=== PATIENT | female | born 1965 | race Caucasian/White ===

== ENCOUNTER → 2017-01-20 | Outpatient (CLI) | payer OTHER ==
[~2017-01-20] MED LIST: ALBUAER19 INH; BIOT1CAP8 PO; CHRO1TAB2 PO; CYM/30 PO; CYM60 PO; DLTCD/240 PO; GARC1TAB PO; GLIP10TA9 PO; HYDR-4717 PO; LISI-787 PO; METF-384 PO; MOME200A INH; NAPR1TAB9 PO; OXYC-57 PO; POTA20TA16 PO; PRT/40 PO
[2017-01-20 09:52] LABS: MEAN CELL VOLUME 89.2 fL (80-100); MEAN CORPUSCULAR HEMOGLOBIN 30.6 pg (25-34); MEAN CORPUSCULAR HGB CONC 34.3 g/dl (32-36); PLATELET COUNT 240 K/uL (130-400); RED BLOOD COUNT 4.71 M/uL (4.2-5.4); WHITE BLOOD COUNT 6.78 K/uL (4.8-10.8)
[2017-01-20 10:16] LABS: ESTIMATED AVERAGE GLUCOSE 186 mg/dl; HA1C FLAG Normal (Normal)
[2017-01-20 10:18] LABS: ALT/SGPT 62 U/L (12-78); AST/SGOT 32 U/L (15-37); BLOOD UREA NITROGEN 10 mg/dl (7-18); BUN/CREATININE RATIO 12.4 (10-20); CALCIUM 8.8 mg/dl (8.5-10.1); CARBON DIOXIDE 28 mmol/L (21-32); CHLORIDE 104 mmol/L (98-107); CREATININE 0.81 mg/dl (0.60-1.20); GLUCOSE 182 mg/dl (70-99); POTASSIUM 3.6 mmol/L (3.5-5.1); SODIUM 140 mmol/L (136-145)
[2017-01-20 10:25] LABS: ALB/GLOB RATIO 0.9 (0.9-2); ALKALINE PHOSPHATASE 99 U/L (45-117); CHOLESTEROL 186 mg/dl (0-200); CHOLESTEROL/HDL RATIO 4.4; HDL CHOLESTEROL 42 mg/dl; LDL CHOLESTEROL CALCULATED 103 mg/dl; TRIGLYCERIDES 206 mg/dl (0-150); VERY LOW DENSITY LIPOPROT CALC 41 mg/dl
== END | disposition home or self-care (01) ==
LOC: C.LAB1850 08:20
PROVIDERS: ATTEND Internal Medicine
DX: L65.9 Nonscarring hair loss, unspecified (principal); I10 Essential (primary) hypertension; E11.9 Type 2 diabetes mellitus without complications

== ENCOUNTER → 2017-01-24 | Outpatient (CLI) | payer OTHER ==
--- NOTE | 2017-01-24 11:56 | DIAGNOSTIC IMAGING REPORT ---
EXTREMITY NONVASCULAR LIMITED ultrasound CLINICAL HISTORY: D17.1 Lipoma of torso. Pt with a tender palpable mass on the upper left flank COMPARISON STUDY: None. FINDINGS: No sonographic abnormality within the right upper back. At the left flank area of interest there is a 2.3 x 2.4 x 1.1 cm subcutaneous hyperechoic nodule. IMPRESSION: 1. No sonographic abnormality within the right upper back. 2. At the left flank and there is a 2.4 x 2.2 x 1.1 cm subcutaneous hypoechoic nodule. This favors a lipoma. However, a focal area of fat necrosis could also have a similar appearance. Consider follow-up ultrasound in one month to ensure resolution. Otherwise, if this is a fat-containing lesion and is increasing in size or is painful, then surgical excision should be considered. Electronically signed by: Jack Brito M.D. 01/24/2017 11:54 AM Dictated Date/Time: 01/24/2017 11:52 AM
== END | disposition home or self-care (01) ==
LOC: C.ULTR 11:23
PROVIDERS: ATTEND Internal Medicine
DX: D17.1 Benign lipomatous neoplasm of skin and subcutaneous tissue of trunk (principal)

== ENCOUNTER → 2017-01-24 | Outpatient (CLI) | payer OTHER | END | disposition home or self-care (01) | LOC: C.PAPS 16:02 | PROVIDERS: ATTEND Obstetrics & Gynecology | DX: R87.612 Low grade squamous intraepithelial lesion on cytologic smear of cervix (LGSIL) (principal) ==

== ENCOUNTER → 2017-03-18 | Outpatient (CLI) | payer OTHER ==
[~2017-03-18] MED LIST changes: +DULA1INJ INJ; +GLIP1TAB85 PO; +INSDGIPEN PO; +LPT10 PO; +PANT40TA2 PO; -PRT/40 PO
--- NOTE | 2017-03-18 13:33 | DIAGNOSTIC IMAGING REPORT ---
ABDOMEN CT WITHOUT CONTRAST CT DOSE: 745.88 mGycm HISTORY: Hernia R/O RECURRENT HERNIA TECHNIQUE: Multiaxial CT images of the abdomen was performed without contrast. COMPARISON STUDY: 03/11/2016 FINDINGS: Lung bases are clear. Prior cholecystectomy. Liver spleen and pancreas are uniform. Kidneys negative for hydronephrosis or calcification. Bowel pattern is nonobstructive. There is been interval repair of the periumbilical hernia. There is a localized amount of subcutaneous scar. There is no evidence for recurrent hernia. Anterior abdominal wall appears to be intact. Lateral wall appears to be intact as well. IMPRESSION: 1. Interval repair of the patient's periumbilical hernia.. 2. Minimal localized post procedural scar formation of the subcutaneous fat . 3. The lung bases are now considered clear Electronically signed by: Louie Sawyer M.D. 03/18/2017 1:31 PM Dictated Date/Time: 03/18/2017 1:29 PM
== END | disposition home or self-care (01) ==
LOC: C.CTS 12:39
PROVIDERS: ATTEND Surgery
DX: K46.9 Unspecified abdominal hernia without obstruction or gangrene (principal)

== ENCOUNTER → 2017-03-28 | Outpatient (CLI) | payer OTHER ==
--- NOTE | 2017-03-28 16:30 | MAMMOGRAPHY REPORT ---
BILATERAL DIGITAL SCREENING MAMMOGRAM TOMOSYNTHESIS WITH CAD: 03/28/2017 TECHNIQUE: Breast tomosynthesis in addition to standard 2D mammography was performed. Current study was also evaluated with a Computer Aided Detection (CAD) system. COMPARISON: Comparison is made to exams dated: 03/18/2016 mammogram, 03/29/2015 mammogram, 03/15/2015 ma mmogram, 03/14/2014 mammogram, 03/11/2013 mammogram, and 12/27/2009 mammogram - [facility]. BREAST COMPOSITION: There are scattered areas of fibroglandular density in both breasts. FINDINGS: No suspicious masses, calcifications, or areas of architectural distortion are noted in e ither breast. There has been no significant interval change compared to prior exams. Bilateral rex gn-appearing calcifications are not significantly changed. Asymmetry within the left medial breast is stable dating back to at least the 2009 exam. IMPRESSION: ACR BI-RADS CATEGORY 2: BENIGN There is no mammographic evidence of malignancy. A 1 year screening mammogram is recommended. The p atient will receive written notification of the results. Approximately 10% of breast cancers are not detected with mammography. A negative mammographic repor t should not delay biopsy if a clinically suggestive mass is present. Nona Hanson M.D. ah/:03/28/2017 15:54:55 Jewel Staker: Emily DOBSON(Mauro)(M), [facility] letter sent: Normal 1/2 BI-RADS Code: ACR BI-RADS Category 2: Benign
== END | disposition home or self-care (01) ==
LOC: C.MAMM 12:54
PROVIDERS: ATTEND Internal Medicine
DX: Z12.31 Encounter for screening mammogram for malignant neoplasm of breast (principal)

== ENCOUNTER → 2017-05-19 | Outpatient (CLI) | payer BC, OTHER ==
[~2017-05-19] MED LIST changes: -DULA1INJ INJ; -GLIP1TAB85 PO; -INSDGIPEN PO; -LPT10 PO; -PANT40TA2 PO; +PRT/40 PO
--- NOTE | 2017-05-19 13:12 | DIAGNOSTIC IMAGING REPORT ---
LEFT EXTREMITY NONVASCULAR LIMITED CLINICAL HISTORY: 51 years-old Female presenting with left flank lipoma. TECHNIQUE: Grayscale and limited color Doppler ultrasound imaging of the left flank was performed. COMPARISON: Correlation made to CT from 03/11/2016. FINDINGS: A poorly delineated minimally hyperechoic region deep to the skin in the left flank has been measured. The apparent mass measures 4.0 x 1.1 x 1.9 cm and is essentially indistinguishable from the adjacent subcutaneous fat. No hyperemia on color Doppler. IMPRESSION: 1. Fat containing region in the left flank, poorly delineated but possibly lipoma. Notably, no such discrete mass was delineated on the prior CT. Electronically signed by: Db Fernandez 05/19/2017 1:11 PM Dictated Date/Time: 05/19/2017 1:07 PM
== END | disposition home or self-care (01) ==
PROVIDERS: ATTEND Internal Medicine
DX: D17.1 Benign lipomatous neoplasm of skin and subcutaneous tissue of trunk (principal)

== ENCOUNTER → 2017-06-24 | Outpatient (CLI) | payer BC, OTHER ==
[2017-06-24 12:51] LABS: BASO % 0.3 %; BASO ABS # 0.02 K/uL (0-0.2); COMPLETE YES; HEMATOCRIT 40.3 % (37-47); IG% 0.6 %; LYMPH % 27.6 %; MEAN CELL VOLUME 90.6 fL (80-100); MEAN CORPUSCULAR HEMOGLOBIN 30.8 pg (25-34); MEAN PLATELET VOLUME 10.2 fL (7.4-10.4); MONO % 5.8 %; NEUT % 62.7 %; PLATELET COUNT 272 K/uL (130-400); RED BLOOD COUNT 4.45 M/uL (4.2-5.4); WHITE BLOOD COUNT 7.25 K/uL (4.8-10.8)
[2017-06-24 13:14] LABS: ESTIMATED AVERAGE GLUCOSE 217 mg/dl; HA1C FLAG Normal (Normal)
[2017-06-24 13:25] LABS: ALT/SGPT 76 U/L (12-78); AST/SGOT 42 U/L (15-37); BLOOD UREA NITROGEN 13 mg/dl (7-18); BUN/CREATININE RATIO 15.8 (10-20); CALCIUM 8.8 mg/dl (8.5-10.1); CARBON DIOXIDE 28 mmol/L (21-32); CHLORIDE 101 mmol/L (98-107); CREATININE 0.81 mg/dl (0.60-1.20); GLUCOSE 246 mg/dl (70-99); POTASSIUM 3.8 mmol/L (3.5-5.1); SODIUM 134 mmol/L (136-145)
[2017-06-24 13:29] LABS: RATIO 13.5 mcg/mg (0-30.0)
[2017-06-24 13:33] LABS: ALB/GLOB RATIO 0.8 (0.9-2); ALKALINE PHOSPHATASE 107 U/L (45-117); FERRITIN 108.9 ng/ml (8.0-388.0); TOTAL IRON BINDING CAPACITY 346 mcg/dl (250-450)
[2017-06-24 13:37] LABS: T3 TOTAL 1.04 ng/ml (0.60-1.81); THYROXINE (T4) 9.4 mcg/dl (4.5-10.9)
--- NOTE | 2017-06-30 08:53 | CODING QUERY MEDICAL NECESSITY ---
SUPPORTING DIAGNOSIS NEEDED Dr. Gray, A supporting diagnosis is required for the test/procedure performed on this patient in order for us to be reimbursed by the patient's insurance. Please provide a supporting diagnosis for the following test/procedure listed below next to the test name along with your signature. *If there is no additional diagnosis for this patient that would support the following test/procedure please document that below next to the test/procedure. Test(s)/Procedure(s) that require a supporting diagnosis: * ([id number]) VITAMIN D ASSAY DIAGNOSIS: DATE OF SERVICE: 06/24/17 Provider Signature: Date: Thank you Fortino Mcelroy [facility] Information Management Once completed, please kindly fax back to [phone] For questions please call [phone]
[2017-06-30 14:15] LABS: TESTOSTERONE,TOTAL 17 ng/dL (2-45)
== END | disposition home or self-care (01) ==
LOC: C.LAB1850 11:21
PROVIDERS: ATTEND Dermatology
DX: E11.9 Type 2 diabetes mellitus without complications (principal); R74.0 Nonspecific elevation of levels of transaminase and lactic acid dehydrogenase [LDH]; B35.3 Tinea pedis

== ENCOUNTER → 2017-07-15 | Outpatient (CLI) | payer BC, OTHER ==
[~2017-07-15] MED LIST changes: -BIOT1CAP8 PO; -CHRO1TAB2 PO; -CYM/30 PO; -MOME200A INH
--- NOTE | 2017-07-15 14:33 | DIAGNOSTIC IMAGING REPORT ---
CHEST 2 VIEWS ROUTINE CLINICAL HISTORY: Preoperative evaluation. COMPARISON STUDY: Chest radiograph April 12, 2016. FINDINGS: Lung volumes are normal. Lungs are clear. No pneumothorax or pleural effusion is present. Pulmonary vascularity is normal. Cardiomediastinal silhouette is normal. There are cholecystectomy clips. IMPRESSION: No acute cardiopulmonary findings. Electronically signed by: Trevor Barrios M.D. 07/15/2017 2:31 PM Dictated Date/Time: 07/15/2017 2:28 PM
== END | disposition home or self-care (01) ==
LOC: C.RAD 13:53
PROVIDERS: ATTEND Surgery
DX: Z01.811 Encounter for preprocedural respiratory examination (principal); D17.1 Benign lipomatous neoplasm of skin and subcutaneous tissue of trunk

== ENCOUNTER 2017-07-17 06:29 | Day surgery (SDC) | payer BC, OTHER ==
[2017-07-11 09:01] VITALS: BMI 41.0
[~2017-07-17] VITALS: Ht 160 cm; Wt 105.9 kg
[~2017-07-17 06:29] MED LIST changes: +LACTATED RINGER'S 1000ML 1,000 ML IV SCH; -OXYC-57 PO
[2017-07-17 07:00] VITALS: BP 152/74; PULSE 61; TEMP 36.9; O2SAT 97; Ht 160 cm; Wt 105.9 kg
--- NOTE | 2017-07-17 07:28 | History & Physical Bridge Note ---
H&P Re-Evaluation Bridge Note: I have examined the patient, reviewed the History & Physical and in the interval since the performance of the History & Physical I have noted the following changes of clinical significance: No changes noted pt marked left chest needs to get ultrasound localization lesion preop
[2017-07-17] MEDS ORDERED: LIDOCAINE HCL 2% 2 ML VIAL (20MG/ML) ONE (07:37)
[2017-07-17] MEDS ORDERED: PROPOFOL IV EMULSION 10 MG/ML 20 ML VIAL IV ONE (07:37)
[2017-07-17] MEDS ORDERED: FENTANYL CITRATE INJ 50 MCG/1 ML 2 ML VIAL ONE (07:38)
[2017-07-17] MEDS ORDERED: MIDAZOLAM HCL 1 MG/ML 2ML VIAL ONE ×2 (07:38→08:18)
[2017-07-17] MEDS ORDERED: NovoLIN-R INSULIN PER UNIT CHARGE ONE (07:57)
--- NOTE | 2017-07-17 07:59 | DIAGNOSTIC IMAGING REPORT ---
ABDOMEN LIMITED (US) HISTORY: Lipoma pj for surgeon to remove. COMPARISON: 05/19/2017 FINDINGS: The echogenic lipoma of the left flank was marked for surgical resection. Current maximum dimensions are 4 x 1 x 1.5 cm. IMPRESSION: Preoperative marking of a left flank lipoma. The above report was generated using voice recognition software. It may contain grammatical, syntax or spelling errors. Electronically signed by: Pj Sawyer M.D. 07/17/2017 7:58 AM Dictated Date/Time: 07/17/2017 7:56 AM
[2017-07-17] MEDS ORDERED: NURSING VERBAL MED ORDER ONE (08:00)
[2017-07-17] MEDS ORDERED: BUPIVACAINE 0.5 % 5 MG/1 ML MPF 30ML VIAL ONE ×2 (08:02→08:39)
[2017-07-17] MEDS ORDERED: HYDROmorphone INJ 2 MG/ML SYR/VIAL IV PRN (08:15)
[2017-07-17] MEDS ORDERED: LABETALOL HCL IV 5 MG/ML 20ML IV PRN (08:15)
[2017-07-17] MEDS ORDERED: PHENYLEPHRINE 100MCG/ML 5ML SYR IV PRN (08:15)
[2017-07-17] MEDS ORDERED: ONDANSETRON INJ 2 MG/ML 2 ML VIAL IV PRN ×2 (08:15→09:15)
[2017-07-17] MEDS ORDERED: FLUMAZENIL 0.1 MG/1 ML 10 ML VIAL IV PRN (08:15)
[2017-07-17] MEDS ORDERED: NALOXONE HCL 0.4 MG/1 ML VIAL/CARP IV PRN (08:15)
[2017-07-17] MEDS ORDERED: FENTANYL CITRATE INJ 50 MCG/1 ML 2 ML VIAL IV PRN (08:15)
[2017-07-17] MEDS ORDERED: EpHEDrine SULFATE INJ 50 MG/ML AMP IV PRN (08:15)
[2017-07-17] MEDS ORDERED: ATROPINE SULFATE 0.1 MG/ML 5ML SYR IV PRN (08:15)
[2017-07-17] MEDS ORDERED: MEPERIDINE HCL 25 MG/ML CARP IV PRN (08:15)
[2017-07-17] MEDS ORDERED: ONDANSETRON INJ 2 MG/ML 2 ML VIAL ONE (08:26)
--- NOTE | 2017-07-17 09:09 | [facility] Operative Report ---
Operative Report Operative Date Jul 17, 2017. Pre-Operative Diagnosis Soft Tissue Mass - Left Flank Post-Operative Diagnosis 4cm lipomatous Tissue - Left Flank Procedure(s) Performed Excision 4cm lipomatous Tissue with prior ultrasound localization - Left Flank Surgeon Dr. Aditya Thomas [employer] Surgeon(s) Zayra Orr PA-C Estimated Blood Loss 5ml Findings multilobular lipomatous tissue keven 4-6cm size Specimens A.) Lipoma Indications soft tissue mass left lower rib cage flank Description of Procedure or summary dictated confirmation number [id number] I attest to the content of the Intraoperative Record and any orders documented therein. Any exceptions are noted below.
[2017-07-17] MEDS ORDERED: OXYC-57 PO (09:13)
[2017-07-17] MEDS ORDERED: OXYCODONE/ACETAMINOPHEN 5-325 TAB PO PRN ×2 (09:15)
--- NOTE | 2017-07-17 09:17 | Discharge Instructions ---
Discharge Instructions Date of Service Jul 17, 2017. Admission Reason for Admission: Lipoma Of Torso Discharge Discharge Diagnosis / Problem: Lipoma of Torso Discharge Goals Goal(s): Decrease discomfort, Improve function Activity Recommendations Activity Limitations: as noted below Lifting Limitations: no more than 10 pounds Exercise/Sports Limitations: until after follow-up appointment May Resume Sexual Activity: after follow-up appointment Shower/Bathe: tomorrow Driving or Machine Use: resume 1 day after discharge . Instructions / Follow-Up Instructions / Follow-Up You have steri-strips over your surgical incision. Please leave them on until they fall off. You may shower over top them starting tomorrow AM. Please follow-up in the office in 1 week. Please call the office at [phone] to make a follow-up appointment. Please call the office with any questions or concerns. Current Hospital Diet Patient's current hospital diet: Discharge Diet Recommended Diet: Regular Diet Procedures Procedures Performed: Excision 4cm lipomatous Tissue with prior ultrasound localization - Left Flank Pending Studies Studies pending at discharge: yes List of pending studies: Pathology report. Laboratory Results Hemoglobin A1c Test 06/24/17 11:28 Range/Units Estimated Average Glucose 217 mg/dl Hemoglobin A1c 9.2 H 4.5-5.6 % Medical Emergencies . Who to Call and When: Medical Emergencies: If at any time you feel your situation is an emergency, please call 911 immediately. . Non-Emergent Contact Non-Emergency issues call your: Primary Care Provider, Surgeon Call Non-Emergent contact if: temperature is above 101.5, your pain is not controlled, wound has increased drainage, wound has increased redness . "Provider Documentation" section prepared by Zayra Orr. . VTE Core Measure Inpt VTE Proph given/why not?: SCD's [place] Drug Monitoring Program Search Results: patient reviewed within database, no issues identified
--- NOTE | 2017-07-17 09:25 | Anesthesiology Progress Note ---
Anesthesia Post Op Note Date & Time Jul 17, 2017 at 09:25 Vital Signs Pain Intensity: 0 Vital Signs Past 12 Hours Date Time Temp Pulse Resp B/P (MAP) Pulse Ox O2 Delivery O2 Flow Rate FiO2 07/17/17 09:22 140/78 07/17/17 09:20 56 21 07/17/17 09:20 57 21 92 07/17/17 09:17 158/83 07/17/17 09:15 63 12 94 07/17/17 09:15 60 12 07/17/17 09:11 146/86 07/17/17 09:10 61 13 07/17/17 09:10 61 13 95 07/17/17 09:10 36.4 59 16 146/86 (98) 94 Room Air 07/17/17 07:00 36.9 61 20 152/74 (100) 97 Room Air Notes Mental Status: alert / awake / arousable, participated in evaluation Pt Amnestic to Procedure: Yes Nausea / Vomiting: adequately controlled Pain: adequately controlled Airway Patency, RR, SpO2: stable & adequate BP & HR: stable & adequate Hydration State: stable & adequate Anesthetic Complications: no major complications apparent
[2017-07-17 09:40] VITALS: BP 138/78; PULSE 53; TEMP 36.9; O2SAT 95
[2017-07-17 10:10] VITALS: BP 132/66; PULSE 56; TEMP 36.9; O2SAT 95
--- NOTE | 2017-07-17 10:13 | OPERATIVE REPORT ---
DATE OF OPERATION: 07/17/2017 PREOPERATIVE DIAGNOSIS: Soft tissue mass, left lower rib cage flank. POSTOPERATIVE DIAGNOSIS: Same consistent with a lipoma multilobular. PROCEDURE: Excision of left lower rib cage, left flank mass with prior ultrasound localization. SURGEON: Dr. Thomas. MANAGER RECRUITING: Zayra Orr PA-C. SUMMARY: The patient was taken to the ultrasound suite, placed in the right lateral position. The left lower rib, upper flank area of interest was identified by ultrasound and I was present for localization. I could see an area about 4 cm by ultrasound. We marked it with a [place] around the area as the patient would have been laying into the operating room field. Clinically, I could not feel a definitive mass, there was some induration in the area. The patient was taken to the operating room and positioned in the same way as we had more localized in the ultrasound suite. Local anesthetic was used of 0.5% Marcaine without epinephrine, some IV sedation was given. The area had been prepped with Betadine solution. After achieving anesthetic level, we made approximately 3 cm incision over the area of interest, deepened through subcutaneous tissue where we found some multilobular tissue, went deep to the superficial body fascia and found multiple areas of lipomatous tissue but nothing 1 significant lipoma, this was multilobular in nature. I even enlarged the incision a little bit laterally that we had prepped, she had about a 4 cm or so incision, possibly 5 and explored the area with local anesthetic and took out a significant amount of subcutaneous fatty tissue subfascial down to the chest wall. We were probably at approximately the 11th rib area. Once the area was checked for hemostasis there was a bleeder in the subQ that we controlled with 3-0 silk suture, more local was used and closed the wound in multiple layers using 3-0 and 2-0 Dexon interrupted and 4-0 Monocryl for the skin edge. Steri-Strips applied. The procedure was tolerated well by the patient. Estimated blood loss approximately 5 mL. The patient was taken to recovery room in good condition. I attest to the content of the Intraoperative Record and any orders documented therein. Any exception s are noted below.
[2017-07-17] MEDS ORDERED: SODIUM CHLORIDE 0.9% 1000ML 1,000 ML IV SCH (10:30)
== END 2017-07-17 10:20 | disposition home or self-care (01) ==
LOC: C.ACU 06:29
PROVIDERS: ATTEND Surgery
DX: D17.1 Benign lipomatous neoplasm of skin and subcutaneous tissue of trunk (principal); I10 Essential (primary) hypertension; I51.7 Cardiomegaly; E78.5 Hyperlipidemia, unspecified; E87.6 Hypokalemia; E88.81 Metabolic syndrome and other insulin resistance; E55.9 Vitamin D deficiency, unspecified; E11.40 Type 2 diabetes mellitus with diabetic neuropathy, unspecified; E11.43 Type 2 diabetes mellitus with diabetic autonomic (poly)neuropathy; E11.51 Type 2 diabetes mellitus with diabetic peripheral angiopathy without gangrene; K31.84 Gastroparesis; K21.9 Gastro-esophageal reflux disease without esophagitis; K76.0 Fatty (change of) liver, not elsewhere classified; G47.30 Sleep apnea, unspecified; G47.26 Circadian rhythm sleep disorder, shift work type; M15.9 Polyosteoarthritis, unspecified; E66.01 Morbid (severe) obesity due to excess calories; Z68.41 Body mass index [BMI] 40.0-44.9, adult; Z79.84 Long term (current) use of oral hypoglycemic drugs; Z79.899 Other long term (current) drug therapy

== ENCOUNTER → 2017-08-04 | Outpatient (CLI) | payer BC, OTHER ==
[~2017-08-04] MED LIST changes: -LACTATED RINGER'S 1000ML 1,000 ML IV SCH
[2017-08-04 11:42] LABS: URINE APPEARANCE CLEAR (CLEAR); URINE BILIRUBIN NEG (NEG); URINE COLOR YELLOW; URINE EPITHELIAL CELL AUTO >30 /lpf (0-5); URINE NITRITE NEG (NEG); URINE SPECIFIC GRAVITY 1.016 (1.000-1.030); UROBILINOGEN NEG (NEG)
[2017-08-04 11:44] LABS: MANUAL MICROSCOPIC REQUIRED? NO; REVIEW REQ? NO
[2017-08-07 04:44] LABS: ANTI-CENTROMERE AB <1.0 NEG AI (<1.0 NEG); ANTI-SS-A <1.0 NEG AI (<1.0 NEG); ANTI-SS-B <1.0 NEG AI (<1.0 NEG); DNA ds CRITHIDIA NEGATIVE (NEGATIVE); Sm Antibody <1.0 NEG AI (<1.0 NEG)
== END | disposition home or self-care (01) ==
LOC: C.LAB1850 09:31
PROVIDERS: ATTEND Internal Medicine Rheumatology
DX: L65.9 Nonscarring hair loss, unspecified (principal)

== ENCOUNTER 2017-12-30 12:28 | Emergency (ER) | payer BC, OTHER ==
[~2017-12-30] VITALS: Ht 160 cm; Wt 109.0 kg
[~2017-12-30 12:28] MED LIST changes: +DULA1INJ INJ; -GLIP10TA9 PO; +GLIP1TAB85 PO; +INSDGIPEN PO; +LPT10 PO; +PANT40TA2 PO; -PRT/40 PO
[2017-12-30 12:31] VITALS: TEMP 36.8; Ht 160 cm; Wt 109.0 kg
[2017-12-30] MEDS ORDERED: SODIUM CHLORIDE 0.9% 1000ML 1,000 ML IV STA (13:10)
[2017-12-30] MEDS ORDERED: ONDANSETRON INJ 2 MG/ML 2 ML VIAL IV STA (13:10)
[2017-12-30] MEDS ORDERED: LOPERAMIDE LIQUID 1MG/7.5ML 120ML BTL PO ONE (13:15)
[2017-12-30] MEDS ORDERED: MoRPHine SULFATE 4 MG/ML 1 ML CARP\\VIAL IV PRN (13:15)
[2017-12-30] MEDS ORDERED: LOPERAMIDE HCL 2 MG CAP PO SCH (13:30)
[2017-12-30 13:47] LABS: BASO % 0.1 %; BASO ABS # 0.01 K/uL (0-0.2); EOS % 6.3 %; EOS ABS # 0.55 K/uL (0-0.5); HEMATOCRIT 44.6 % (37-47); HEMOGLOBIN 15.6 g/dL (12.0-16.0); IG# 0.06 K/uL (0.00-0.02); LYMPH % 23.1 %; LYMPH ABS # 2.01 K/uL (1.2-3.4); MEAN CELL VOLUME 89.6 fL (80-100); MEAN CORPUSCULAR HEMOGLOBIN 31.3 pg (25-34); MEAN PLATELET VOLUME 10.2 fL (7.4-10.4); MONO % 5.9 %; MONO ABS # 0.51 K/uL (0.11-0.59); NEUT % 63.9 %; NEUT ABS # 5.55 K/uL (1.4-6.5); PLATELET COUNT 262 K/uL (130-400); RED CELL DISTRIBUTION WIDTH SD 42.6 fL (36.4-46.3); WHITE BLOOD COUNT 8.69 K/uL (4.8-10.8)
[2017-12-30 14:13] LABS: ALBUMIN 3.6 gm/dl (3.4-5.0); CREATININE 0.82 mg/dl (0.60-1.20); POTASSIUM 3.1 mmol/L (3.5-5.1)
[2017-12-30] MEDS ORDERED: ONDA4TAB10 SL (15:51)
--- NOTE | 2017-12-30 15:51 | EMERGENCY ROOM VISIT NOTE ---
History Report prepared by He: Stevenson Olivas Under the Supervision of: Dr. Richardson Hui D.O. First contact with patient: 13:05 Chief Complaint: DIARRHEA Stated Complaint: DIARRHEA, ABD PAIN FOR WEEK Nursing Triage Summary: pt to the ED with c/o fever chills over weekend and with n/v/d, felt like she was getting better and now has contiued diarrhea History of Present Illness The patient is a 52 year old female who presents to the Emergency Room with complaints of persistent diarrhea beginning nine days ago. She also complains of chills, fever, chest "burning", and vomiting. Her additional symptoms lasted for two days. The patient states that her diarrhea has persisted, and she is having episodes every few minutes. She describes her diarrhea as "black water". She states that she has been taking Pepto Bismol, but nothing has improved her symptoms. The patient denies recent antibiotic use. Source of History: patient Onset: Nine days ago Symptom Intensity: episodes every few minutes Quality: other (diarrhea) Timing: other (persistent) Modifying Factors (Relieving): other (none) Associated Symptoms: + fevers (resolved a week ago), + chills (resolved a week ago), + chest pain (resolved seven days ago), + vomiting (resolved seven days ago) Review of Systems See HPI for pertinent positives & negatives. A total of 10 systems reviewed and were otherwise negative. Past Medical & Surgical Medical Problems: (1) Anxiety State Nos (2) Diabetes (3) Esophageal Reflux (4) Hypertension Nos (5) Mixed Hyperlipidemia Family History Cancer Diabetes mellitus Gallbladder disease Heart disease Hypertension Social History Smoking Status: Never Smoker Marital Status: Housing Status: lives with family Occupation Status: employed Current/Historical Medications Scheduled Atorvastatin (Lipitor), 10 MG PO DAILY Diltiazem Hcl (Diltiazem Cd), 240 MG PO BID Dulaglutide (Trulicity), 1 DOSE INJ WK Duloxetine HCl (Duloxetine HCl), 60 MG PO QAM Garcinia Cambogia-Chromium (Garcinia Cambogia), 2 TAB PO TID Glipizide Xl (Glucotrol Xl), 10 MG PO DAILY Hydralazine Hcl (Apresoline), 25 MG PO BID Insulin Glargine (Lantus Solostar), 12 UNITS PO QAM Lisinopril/Hctz (Zestoretic 20MG/12.5MG), 1 TAB PO BID Metformin Hcl (Glucophage), 1,000 MG PO BID Naproxen (Aleve), 220-440 MG PO PRN Pantoprazole (Pantoprazole Sodium), 40 MG PO HS Potassium Ext Rel (Klor-Con), 20 MEQ PO BID Scheduled PRN Albuterol Inhaler (Ventolin Inhaler), 2 PUFFS INH QID PRN for SOB/Wheezing Allergies Coded Allergies: Prednisone (Verified Adverse Reaction, Intermediate, hyperglycemia, ) Physical Exam Vital Signs Date Time Temp Pulse Resp B/P (MAP) Pulse Ox O2 Delivery O2 Flow Rate FiO2 12/30/17 14:40 65 20 165/92 95 Room Air 12/30/17 12:31 36.8 67 16 147/90 98 Physical Exam CONSTITUTIONAL/VITAL SIGNS: Reviewed / noted above. GENERAL: Non-toxic in appearance. INTEGUMENTARY: Warm, dry, and [place]. HEAD: Normocephalic. EYES: without scleral icterus or trauma. ENT/OROPHARYNX: clear and moist. LYMPHADENOPATHY/NECK: Is supple without lymphadenopathy or meningismus. RESPIRATORY: Lungs clear and equal. CARDIOVASCULAR: Regular rate and rhythm. GI/ABDOMEN: Soft and nontender. No organomegaly or pulsatile mass. No rebound or guarding. Normal bowel sounds. EXTREMITIES: Warm and well perfused. BACK: No CVA tenderness. NEUROLOGICAL: Intact without focal deficits. PSYCHIATRIC: normal affect. MUSCULOSKELETAL: Normally developed with good muscle tone. Medical Decision & Procedures Laboratory Results 12/30/17 13:30 Red Blood Count 4.98, Mean Corpuscular Volume 89.6, Mean Corpuscular Hemoglobin 31.3, Mean Corpuscular Hemoglobin Concent 35.0, Mean Platelet Volume 10.2, Neutrophils (%) (Auto) 63.9, Lymphocytes (%) (Auto) 23.1, Monocytes (%) (Auto) 5.9, Eosinophils (%) (Auto) 6.3, Basophils (%) (Auto) 0.1, Neutrophils # (Auto) 5.55, Lymphocytes # (Auto) 2.01, Monocytes # (Auto) 0.51, Eosinophils # (Auto) 0.55, Basophils # (Auto) 0.01 12/30/17 13:30 Test 12/30/17 13:30 White Blood Count 8.69 K/uL (4.8-10.8) Red Blood Count 4.98 M/uL (4.2-5.4) Hemoglobin 15.6 g/dL (12.0-16.0) Hematocrit 44.6 % (37-47) Mean Corpuscular Volume 89.6 fL (80-100) Mean Corpuscular Hemoglobin 31.3 pg (25-34) Mean Corpuscular Hemoglobin Concent 35.0 g/dl (32-36) Platelet Count 262 K/uL (130-400) Mean Platelet Volume 10.2 fL (7.4-10.4) Neutrophils (%) (Auto) 63.9 % Lymphocytes (%) (Auto) 23.1 % Monocytes (%) (Auto) 5.9 % Eosinophils (%) (Auto) 6.3 % Basophils (%) (Auto) 0.1 % Neutrophils # (Auto) 5.55 K/uL (1.4-6.5) Lymphocytes # (Auto) 2.01 K/uL (1.2-3.4) Monocytes # (Auto) 0.51 K/uL (0.11-0.59) Eosinophils # (Auto) 0.55 K/uL (0-0.5) Basophils # (Auto) 0.01 K/uL (0-0.2) RDW Standard Deviation 42.6 fL (36.4-46.3) RDW Coefficient of Variation 13.0 % (11.5-14.5) Immature Granulocyte % (Auto) 0.7 % Immature Granulocyte # (Auto) 0.06 K/uL (0.00-0.02) Anion Gap 7.0 mmol/L (3-11) Est Creatinine Clear Calc Drug Dose 95.1 ml/min Estimated GFR () 95.4 Estimated GFR (Non- 82.3 BUN/Creatinine Ratio 9.6 (10-20) Calcium Level 9.0 mg/dl (8.5-10.1) Total Bilirubin 0.9 mg/dl (0.2-1) Direct Bilirubin 0.2 mg/dl (0-0.2) Aspartate Amino Transf (AST/SGOT) 18 U/L (15-37) Alanine Aminotransferase (ALT/SGPT) 42 U/L (12-78) Alkaline Phosphatase 103 U/L (45-117) Total Protein 8.0 gm/dl (6.4-8.2) Albumin 3.6 gm/dl (3.4-5.0) Lipase 216 U/L (73-393) Laboratory results as stated above per my review. Medications Administered Medications (Trade) Dose Ordered Sig/Carolyn Route Start Time Stop Time Status Last Admin Dose Admin Sodium Chloride 1,000 ml @ 999 mls/hr Q1H1M STAT IV 12/30/17 13:10 12/30/17 14:10 DC 12/30/17 13:25 999 MLS/HR Ondansetron HCl (Zofran Inj) 4 mg NOW STAT IV 12/30/17 13:10 12/30/17 13:13 DC 12/30/17 13:25 4 MG Loperamide HCl (Imodium Cap) 2 mg 1330 PO 12/30/17 13:30 12/30/17 14:00 DC 12/30/17 13:37 2 MG ED Course 1307: Previous medical records were reviewed. The patient was evaluated in room C6. A complete history and physical examination was performed. 1310: Ordered Zofran Inj 4 mg IV, Sodium Chloride 1000 ml @ 999 mls/hr IV. 1315: Ordered Morphine Sulfate 4 mg IV. 1330: Ordered Imodium Cap 2 mg PO. 1537: On reevaluation, the patient is resting comfortably. I discussed the results and findings with the patient. She verbalized agreement of the treatment plan. The patient was discharged home. Medical Decision Differential diagnosis: Etiologies such as gastroenteritis, food borne illness, infections, appendicitis , diverticulitis, inflammatory bowel disease, obstruction, GI bleed, biliary pathology, as well as others were entertained. This is a 52-year-old female who presents to the ED with a chief complaint of diarrhea. The patient states that her symptoms started about 9 days ago with some chills, slight fever and a little nausea, vomiting diarrhea. It seemed to get better and then over the past 4 days she states that she has been having diarrhea every time she eats or drinks anything. The patient reports no blood or mucus in her stools. She states that she has been taking Pepto-Bismol without improvement. This did make her stools black watery. The patient denies any recent antibiotics or travel. No camping. The patient's had similar symptoms over a week ago and his symptoms lasted for a couple of days and resolved but did not return. The patient's CBC is normal, chemistry panel was unremarkable with exception of a slightly low potassium. Lipase was negative. The patient was treated with Imodium p.o., IV fluids and IV morphine as well as IV Zofran. The patient did not have any diarrhea today during her ED stay. She was felt to be stable for discharge. Prescription for Zofran provided. Medication Reconcilliation Current Medication List: was personally reviewed by me Blood Pressure Screening Patient's blood pressure: Elevated blood pressure Blood pressure disposition: Elevated BP felt to be situational Impression Primary Impression: Diarrhea Scribe Attestation The scribe's documentation has been prepared under my direction and personally reviewed by me in its entirety. I confirm that the note above accurately reflects all work, treatment, procedures, and medical decision making performed by me. Departure Information Dispostion Home / Self-Care Prescriptions Ondasetron Odt (ZOFRAN ODT) 4 Mg Tab 4 MG SL Q6H for Nausea, #15 TAB Prov: Richardson Hui D.O. 12/30/17 Referrals ,Tip Stone M.D. (PCP) Patient Instructions My [facility] Additional Instructions Zofran: Allow one tablet to dissolve under the tongue every 6 hours as needed for nausea or vomiting. Follow-up with your doctor if symptoms persist.
[2017-12-30 16:06] VITALS: BP 183/103; PULSE 63; O2SAT 95
== END 2017-12-30 16:08 | disposition home or self-care (01) ==
LOC: C.EDB 12:30 → C.EDC 16:08
DX: R19.7 Diarrhea, unspecified (principal); F41.9 Anxiety disorder, unspecified; E11.9 Type 2 diabetes mellitus without complications; K21.9 Gastro-esophageal reflux disease without esophagitis; I10 Essential (primary) hypertension; E78.2 Mixed hyperlipidemia; Z83.3 Family history of diabetes mellitus; Z82.49 Family history of ischemic heart disease and other diseases of the circulatory system; Z79.4 Long term (current) use of insulin; Z88.8 Allergy status to other drugs, medicaments and biological substances

== ENCOUNTER 2018-01-02 20:36 | Emergency (ER) | payer OTHER ==
[~2018-01-02] VITALS: Ht 160 cm; Wt 108.2 kg
[~2018-01-02 20:36] MED LIST changes: +ONDA4TAB10 SL
[2018-01-02 20:41] VITALS: TEMP 36.4; Ht 160 cm; Wt 108.2 kg
[2018-01-02] MEDS ORDERED: ONDANSETRON INJ 2 MG/ML 2 ML VIAL IV STA (20:58)
[2018-01-02] MEDS ORDERED: SODIUM CHLORIDE 0.9% 1000ML 1,000 ML IV ONE (21:00)
--- NOTE | 2018-01-02 21:13 | EMERGENCY ROOM VISIT NOTE ---
History Report prepared by He: Austin Mckinley Under the Supervision of: Dr. Jose R Snow M.D. First contact with patient: 20:52 Chief Complaint: DIARRHEA Stated Complaint: DIARRHEA,DRY HEAVES History of Present Illness The patient is a 52 year old female who presents to the Emergency Room with complaints of persistent diarrhea for the past week and a half. The patient states that she had chills and vomiting earlier this week, though now she is only able to dry heave and burp. She additionally feels weak. she states that earlier this week she felt like she was going to pass out. she also reports having some chest pain intermittently throughout the week. The patient is denying any blood in her stool, hematuria, black stools, problems urinating, urinary pain, recent antibiotics use, any dietary issues, and vaginal bleeding or discharge. She states that tonight she ate at a restaurant named [employer], and the diarrhea got worse after that. The patient notes that she was in the ED the other day, and she was given Imodium and Zofran, and before that she was taking Pepto Bismol, though she has not taken any since then. She denies any chance of as she is s/p hysterectomy. Source of History: patient Onset: week and a half Position: other (global) Quality: other (diarrhea) Timing: other (persistent) Associated Symptoms: + chills, + chest pain, + vomiting, + numbness Note: Associated symptoms: Dry heaving, burping, light headed Review of Systems See HPI for pertinent positives and negatives. A total of ten systems were reviewed and were otherwise negative. Past Medical & Surgical Medical Problems: (1) Anxiety State Nos (2) Diabetes (3) Esophageal Reflux (4) Hypertension Nos (5) Mixed Hyperlipidemia Family History Cancer Diabetes mellitus Gallbladder disease Heart disease Hypertension Social History Smoking Status: Never Smoker Marital Status: Housing Status: lives with family Occupation Status: employed Current/Historical Medications Scheduled Atorvastatin (Lipitor), 10 MG PO DAILY Diltiazem Hcl (Diltiazem Cd), 240 MG PO BID Dulaglutide (Trulicity), 1 DOSE INJ WK Duloxetine HCl (Duloxetine HCl), 60 MG PO QAM Garcinia Cambogia-Chromium (Garcinia Cambogia), 2 TAB PO TID Glipizide Xl (Glucotrol Xl), 10 MG PO DAILY Hydralazine Hcl (Apresoline), 25 MG PO BID Insulin Glargine (Lantus Solostar), 12 UNITS PO QAM Lisinopril/Hctz (Zestoretic 20MG/12.5MG), 1 TAB PO BID Metformin Hcl (Glucophage), 1,000 MG PO BID Naproxen (Aleve), 220-440 MG PO PRN Ondasetron Odt (Zofran Odt), 4 MG SL Q6H Pantoprazole (Pantoprazole Sodium), 40 MG PO HS Potassium Ext Rel (Klor-Con), 20 MEQ PO BID Scheduled PRN Albuterol Hfa (Ventolin Hfa), 2 PUFFS INH Q6H PRN for SOB/Wheezing Allergies Coded Allergies: Prednisone (Verified Adverse Reaction, Intermediate, hyperglycemia, ) Physical Exam Vital Signs Date Time Temp Pulse Resp B/P (MAP) Pulse Ox O2 Delivery O2 Flow Rate FiO2 01/03/18 00:06 59 16 125/82 96 01/02/18 22:57 64 16 129/100 96 Room Air 01/02/18 21:51 64 16 122/70 92 Room Air 01/02/18 21:25 Room Air 01/02/18 20:41 36.4 88 20 109/77 93 Room Air Physical Exam Physical Exam GENERAL: She is oriented to person, place, and time. She appears well- developed and well-nourished. She does not appear distressed. ____ HENT: Exam performed. Head: Normocephalic and atraumatic. Right Ear: External ear normal. No mastoid tenderness. Left Ear: External ear normal. No mastoid tenderness. Mouth/Throat: The oropharynx is clear and moist. No trismus in the jaw. No dental abscesses or uvula swelling. No oropharyngeal exudate or tonsillar abscesses. ____ EYES: Conjunctivae and EOM are normal. Pupils are equal, round, and reactive to light. Right eye exhibits no discharge. Left eye exhibits no discharge. No scleral icterus. ____ NECK: Normal range of motion. Neck supple. No JVD present. No spinous process tenderness present. No carotid bruit present. No rigidity. No tracheal deviation and normal range of motion present. No Brudzinski's sign and no Kernig 's sign noted. ____ CV: Normal rate, regular rhythm, normal heart sounds and intact distal pulses. There is no peripheral edema. Palpable radial pulses bue. ____ PULM/CHEST: Effort normal and breath sounds normal. No respiratory distress. No stridor. She has no wheezes. She has no rales. Chest Wall: She exhibits no tenderness. ____ ABD: The abdomen is obese and soft. Bowel sounds are normal. She has no distension. No mass is present. There is no tenderness. There is no rebound, no guarding, no Sánchez's sign and no tenderness at McBurney's point. Rovsig negative MUSC/SKEL: Normal range of motion. There is no peripheral edema, tenderness or deformity. LYMPH: No cervical adenopathy. ____ NEURO: She is alert and oriented to person, place, and time. She has normal strength. No cranial nerve deficit or sensory deficit. Coordination and gait normal. GCS eye subscore is 4. GCS verbal subscore is 5. GCS motor subscore is 6. Cerebellar tests wnl. ____ SKIN: Skin is warm and dry. She is not diaphoretic. ____ PSYCH: She has a normal mood and affect. Her behavior is normal. Judgment and thought content normal. ____ Medical Decision & Procedures ER Provider Diagnostic Interpretation: Radiology results as stated below per my review and radiologist interpretation: CHEST 2 VIEWS ROUTINE CLINICAL HISTORY: Atypical chest pain, nausea, diarrhea COMPARISON STUDY: 07/15/2017 FINDINGS: The cardiac and mediastinal contours are normal. There is no evidence of focal pulmonary consolidation. There is no evidence of failure. No pleural effusions are visualized.[ IMPRESSION: No active disease in the chest. Electronically signed by: Daniel Oakley M.D. 01/02/2018 9:50 PM Dictated Date/Time: 01/02/2018 9:[address] ABD/PELVIS IV CONTRAST ONLY CLINICAL HISTORY: LLQ pain r/o diverticulitis COMPARISON STUDY: 03/18/2017 TECHNIQUE: Following the IV administration of 91 mL of Optiray-320, CT scan of the abdomen and pelvis was performed from the lung bases to the proximal femurs. Images are reviewed in the axial, sagittal, and coronal planes. IV contrast was administered without complication. A dose lowering technique was utilized adhering to the principles of ALARA. CT DOSE: 1848.23 mGy.cm FINDINGS: Lower chest: The heart is normal in size and configuration, without pericardial effusion. The lung bases and pleural spaces are clear. Liver: There is mild hepatic steatosis. No focal masses are visualized. Gallbladder: Surgically absent Spleen: Normal in size and attenuation. Pancreas: Unremarkable. Adrenal glands: Unremarkable. Kidneys: There is symmetric renal cortical enhancement. The kidneys are normal in size without hydronephrosis. Bowel: There are no transition zones indicate bowel obstruction. There is no evidence of acute diverticulitis. There is scattered diverticula present. There are no findings to indicate acute appendicitis. There is moderate fluid within the right colon Peritoneum: There is no intraperitoneal free air or abdominal ascites. There are postsurgical changes of a ventral hernia repair with mesh area Vasculature: The abdominal aorta is normal in course and caliber. Adenopathy: None. Pelvic viscera: The uterus is surgically absent. Skeletal structures: No destructive osseous lesions are seen. IMPRESSION: 1. No evidence of bowel obstruction. No evidence of free air 2. Diverticulosis. No evidence of acute diverticulitis 3. No acute inflammatory changes Electronically signed by: Daniel Oakley M.D. 01/02/2018 10:35 PM Dictated Date/Time: 01/02/2018 10:30 PM Laboratory Results 01/02/18 21:10 Red Blood Count 5.46, Mean Corpuscular Volume 90.7, Mean Corpuscular Hemoglobin 30.6, Mean Corpuscular Hemoglobin Concent 33.7, Mean Platelet Volume 10.6, Neutrophils (%) (Auto) 73.9, Lymphocytes (%) (Auto) 13.7, Monocytes (%) (Auto) 4.7, Eosinophils (%) (Auto) 7.0, Basophils (%) (Auto) 0.1, Neutrophils # (Auto) 11.75, Lymphocytes # (Auto) 2.17, Monocytes # (Auto) 0.74, Eosinophils # (Auto) 1.11, Basophils # (Auto) 0.02 01/02/18 21:10 Test 01/02/18 21:10 01/02/18 22:10 White Blood Count 15.88 K/uL (4.8-10.8) Red Blood Count 5.46 M/uL (4.2-5.4) Hemoglobin 16.7 g/dL (12.0-16.0) Hematocrit 49.5 % (37-47) Mean Corpuscular Volume 90.7 fL (80-100) Mean Corpuscular Hemoglobin 30.6 pg (25-34) Mean Corpuscular Hemoglobin Concent 33.7 g/dl (32-36) Platelet Count 274 K/uL (130-400) Mean Platelet Volume 10.6 fL (7.4-10.4) Neutrophils (%) (Auto) 73.9 % Lymphocytes (%) (Auto) 13.7 % Monocytes (%) (Auto) 4.7 % Eosinophils (%) (Auto) 7.0 % Basophils (%) (Auto) 0.1 % Neutrophils # (Auto) 11.75 K/uL (1.4-6.5) Lymphocytes # (Auto) 2.17 K/uL (1.2-3.4) Monocytes # (Auto) 0.74 K/uL (0.11-0.59) Eosinophils # (Auto) 1.11 K/uL (0-0.5) Basophils # (Auto) 0.02 K/uL (0-0.2) RDW Standard Deviation 42.7 fL (36.4-46.3) RDW Coefficient of Variation 13.0 % (11.5-14.5) Immature Granulocyte % (Auto) 0.6 % Immature Granulocyte # (Auto) 0.09 K/uL (0.00-0.02) Anion Gap 7.0 mmol/L (3-11) Est Creatinine Clear Calc Drug Dose 57.5 ml/min Estimated GFR () 52.2 Estimated GFR (Non- 45.0 BUN/Creatinine Ratio 13.0 (10-20) Calcium Level 8.9 mg/dl (8.5-10.1) Total Bilirubin 1.0 mg/dl (0.2-1) Direct Bilirubin 0.2 mg/dl (0-0.2) Aspartate Amino Transf (AST/SGOT) 21 U/L (15-37) Alanine Aminotransferase (ALT/SGPT) 46 U/L (12-78) Alkaline Phosphatase 112 U/L (45-117) Troponin I < 0.015 ng/ml (0-0.045) Total Protein 7.7 gm/dl (6.4-8.2) Albumin 3.7 gm/dl (3.4-5.0) Lipase 448 U/L (73-393) Urine Color DK YELLOW Urine Appearance CLOUDY (CLEAR) Urine pH 5.0 (4.5-7.5) Urine Specific [place] 1.026 (1.000-1.030) Urine Protein 1+ (NEG) Urine Glucose (UA) NEG (NEG) Urine Ketones TRACE (NEG) Urine Occult Blood NEG (NEG) Urine Nitrite NEG (NEG) Urine Bilirubin NEG (NEG) Urine Urobilinogen NEG (NEG) Urine Leukocyte Esterase TRACE (NEG) Urine WBC (Auto) 1-5 /hpf (0-5) Urine RBC (Auto) 0-4 /hpf (0-4) Urine Hyaline Casts (Auto) >30 /lpf (0-5) Urine Epithelial Cells (Auto) >30 /lpf (0-5) Urine Bacteria (Auto) 1+ (NEG) Urine Crystals CALCIUM OXALATE (NONE Urine Pathogenic Casts 0-3 WBC CASTS /lpf (0) Date/Time Source Procedure Growth Status 01/02/18 22:10 Stool C.difficile Toxin B Gene (PCR) - Final No C. difficile toxin B gene detected Complete Laboratory results reviewed by me Medications Administered Medications (Trade) Dose Ordered Sig/Carolyn Route Start Time Stop Time Status Last Admin Dose Admin Sodium Chloride 1,000 ml @ 999 mls/hr Q1H1M ONCE IV 01/02/18 21:00 01/02/18 22:00 DC 01/02/18 21:21 999 MLS/HR Ondansetron HCl (Zofran Inj) 4 mg ONE STAT IV 01/02/18 20:58 01/02/18 21:03 DC 01/02/18 21:21 4 MG Potassium Chloride (Klor-Con M10) 40 meq NOW STAT PO 01/02/18 23:54 01/02/18 23:56 DC 01/03/18 00:03 40 MEQ ECG Per My Interpretation Indication: other (diarrhea) Rate (beats per minute): 74 Rhythm: sinus rhythm Findings: other (NH, QRS, QTc intervals wnl. No ST elevatoin or depressoin) ED Course 2051: The patient was evaluated in room C5. A complete history and physical exam was performed. Review of EMR reveals that the patient was in the ED 3 days ago, and her labs were normal other than a potassium of 3.1. 2057: Zofran 4mg IV, 2100: Sodium Chloride 1000 ml @ 999 mls/hr IV 2144: Repeat abdominal exam. Pain on palpation of the LLQ as well as the increased white count, a CT scan is going to be ordered wo rule out diverticulitis. 4: VSS. CT was negative for diverticulitis, but it does show diverticulosis. Labs show an increased white count of 15.8 and potassium of 3.1. Potassium was replaced in the ED with Potassium Chloride 40meq PO. Troponin negative. patient tolerating PO. C diff was negative. She will be discharged with a follow up to GI and her PCP. DISCHARGE - Plan of care discussed with patient and questions answered. The patient was given both verbal and printed discharge instructions. The patient verbalized understanding and ability to comply. The patient is to seek outpatient follow up as noted in the discharge instructions. The patient verbalized understanding and ability to comply. The patient is discharged in stable condition. The patient was instructed to return for worsening symptoms. Medical Decision VSS. CT was negative for diverticulitis, but it does show diverticulosis. Labs show an increased white count of 15.8 and potassium of 3.1. Potassium was replaced in the ED with Potassium Chloride 40meq PO. Troponin negative. patient tolerating PO. C diff was negative. She will be discharged with a follow up to GI and her PCP. DISCHARGE - Plan of care discussed with patient and questions answered. The patient was given both verbal and printed discharge instructions. The patient verbalized understanding and ability to comply. The patient is to seek outpatient follow up as noted in the discharge instructions. The patient verbalized understanding and ability to comply. The patient is discharged in stable condition. The patient was instructed to return for worsening symptoms. Medication Reconcilliation Current Medication List: was personally reviewed by me Blood Pressure Screening Patient's blood pressure: Normal blood pressure Impression Primary Impression: Diarrhea Additional Impression: Hypokalemia Scribe Attestation The scribe's documentation has been prepared under my direction and personally reviewed by me in its entirety. I confirm that the note above accurately reflects all work, treatment, procedures, and medical decision making performed by me. The chart was completed utilizing [employer] voice recognition software. Grammatical errors, random word insertions, pronoun errors, and incomplete sentences are an occasional consequence of this system due to software limitations, ambient noise, and hardware issues. Any formal questions or concerns about the content, text, or information contained within the body of this dictation should be directly addressed to the physician for clarification. Departure Information Dispostion Home / Self-Care Referrals No Doctor, Assigned (PCP) Forms HOME CARE DOCUMENTATION FORM, IMPORTANT VISIT INFORMATION, WORK / SCHOOL INSTRUCTIONS Patient Instructions Diarrhea, Hypokalemia Stevie, My [facility] Problem Qualifiers Primary Impression: Diarrhea Diarrhea type: unspecified type Qualified Codes: R19.7 - Diarrhea, unspecified
[2018-01-02 21:32] LABS: BASO % 0.1 %; BASO ABS # 0.02 K/uL (0-0.2); EOS ABS # 1.11 K/uL (0-0.5); HEMATOCRIT 49.5 % (37-47); HEMOGLOBIN 16.7 g/dL (12.0-16.0); IG# 0.09 K/uL (0.00-0.02); LYMPH % 13.7 %; LYMPH ABS # 2.17 K/uL (1.2-3.4); MEAN CELL VOLUME 90.7 fL (80-100); MEAN CORPUSCULAR HEMOGLOBIN 30.6 pg (25-34); MEAN CORPUSCULAR HGB CONC 33.7 g/dl (32-36); MEAN PLATELET VOLUME 10.6 fL (7.4-10.4); MONO % 4.7 %; MONO ABS # 0.74 K/uL (0.11-0.59); NEUT % 73.9 %; NEUT ABS # 11.75 K/uL (1.4-6.5); PLATELET COUNT 274 K/uL (130-400); RED CELL DISTRIBUTION WIDTH SD 42.7 fL (36.4-46.3); WHITE BLOOD COUNT 15.88 K/uL (4.8-10.8)
--- NOTE | 2018-01-02 21:51 | DIAGNOSTIC IMAGING REPORT ---
CHEST 2 VIEWS ROUTINE CLINICAL HISTORY: Atypical chest pain, nausea, diarrhea COMPARISON STUDY: 07/15/2017 FINDINGS: The cardiac and mediastinal contours are normal. There is no evidence of focal pulmonary consolidation. There is no evidence of failure. No pleural effusions are visualized.[ IMPRESSION: No active disease in the chest. Electronically signed by: Daniel Oakley M.D. 01/02/2018 9:50 PM Dictated Date/Time: 01/02/2018 9:50 PM
[2018-01-02 21:52] LABS: ALBUMIN 3.7 gm/dl (3.4-5.0); ALT/SGPT 46 U/L (12-78); AST/SGOT 21 U/L (15-37); BLOOD UREA NITROGEN 18 mg/dl (7-18); CALCIUM 8.9 mg/dl (8.5-10.1); CARBON DIOXIDE 27 mmol/L (21-32); CREATININE 1.35 mg/dl (0.60-1.20); GLUCOSE 158 mg/dl (70-99); LIPASE 448 U/L (73-393); POTASSIUM 3.1 mmol/L (3.5-5.1); SODIUM 136 mmol/L (136-145)
[2018-01-02 21:57] LABS: ALKALINE PHOSPHATASE 112 U/L (45-117); TOTAL PROTEIN 7.7 gm/dl (6.4-8.2)
[2018-01-02] MEDS ORDERED: OPTIRAY 320 IV PRN (22:00)
--- NOTE | 2018-01-02 22:36 | DIAGNOSTIC IMAGING REPORT ---
CT ABD/PELVIS IV CONTRAST ONLY CLINICAL HISTORY: LLQ pain r/o diverticulitis COMPARISON STUDY: 03/18/2017 TECHNIQUE: Following the IV administration of 91 mL of Optiray-320, CT scan of the abdomen and pelvis was performed from the lung bases to the proximal femurs. Images are reviewed in the axial, sagittal, and coronal planes. IV contrast was administered without complication. A dose lowering technique was utilized adhering to the principles of ALARA. CT DOSE: 1848.23 mGy.cm FINDINGS: Lower chest: The heart is normal in size and configuration, without pericardial effusion. The lung bases and pleural spaces are clear. Liver: There is mild hepatic steatosis. No focal masses are visualized. Gallbladder: Surgically absent Spleen: Normal in size and attenuation. Pancreas: Unremarkable. Adrenal glands: Unremarkable. Kidneys: There is symmetric renal cortical enhancement. The kidneys are normal in size without hydronephrosis. Bowel: There are no transition zones indicate bowel obstruction. There is no evidence of acute diverticulitis. There is scattered diverticula present. There are no findings to indicate acute appendicitis. There is moderate fluid within the right colon Peritoneum: There is no intraperitoneal free air or abdominal ascites. There are postsurgical changes of a ventral hernia repair with mesh area Vasculature: The abdominal aorta is normal in course and caliber. Adenopathy: None. Pelvic viscera: The uterus is surgically absent. Skeletal structures: No destructive osseous lesions are seen. IMPRESSION: 1. No evidence of bowel obstruction. No evidence of free air 2. Diverticulosis. No evidence of acute diverticulitis 3. No acute inflammatory changes Electronically signed by: Daniel Oakley M.D. 01/02/2018 10:35 PM Dictated Date/Time: 01/02/2018 10:30 PM
[2018-01-02] MEDS ORDERED: VNTHFA/IN INH (22:51)
[2018-01-02] MEDS ORDERED: POTASSIUM CHLORIDE 10 MEQ TABCR PO STA (23:54)
[2018-01-03 00:06] VITALS: BP 125/82; PULSE 59; O2SAT 96
== END 2018-01-03 00:07 | disposition home or self-care (01) ==
LOC: C.EDB 20:37 → C.EDC 01-03 00:07
DX: R19.7 Diarrhea, unspecified (principal); E87.6 Hypokalemia; F41.9 Anxiety disorder, unspecified; E11.9 Type 2 diabetes mellitus without complications; K21.9 Gastro-esophageal reflux disease without esophagitis; I10 Essential (primary) hypertension; E78.5 Hyperlipidemia, unspecified; Z80.9 Family history of malignant neoplasm, unspecified; Z83.3 Family history of diabetes mellitus; Z83.79 Family history of other diseases of the digestive system; Z82.49 Family history of ischemic heart disease and other diseases of the circulatory system; Z79.4 Long term (current) use of insulin; Z79.899 Other long term (current) drug therapy; Z88.8 Allergy status to other drugs, medicaments and biological substances

== ENCOUNTER → 2018-06-12 | Outpatient (CLI) | payer OTHER ==
[~2018-06-12] MED LIST changes: -ALBUAER19 INH; +POTA-639 PO; -POTA20TA16 PO; +VNTHFA/IN INH
== END | disposition home or self-care (01) ==
LOC: C.LAB1850 11:56
PROVIDERS: ATTEND Internal Medicine
DX: E87.6 Hypokalemia (principal)

== ENCOUNTER 2020-08-03 06:50 | Observation (INO) ==
--- NOTE | 2020-06-30 14:41 | PAT Medication Instructions ---
Medication Instructions Date of Service June 30, 2020 Home Medications Medication Instructions Recorded miscellaneous medical supply #1 ea 10/26/19 cholecalciferol (vitamin D3) 1,250 1,250 mcg PO WEEKLY 90 Days #24 cap 01/11/20 mcg (50,000 unit) capsule diltiazem HCl 240 mg 240 mg PO BID #180 cap 01/18/20 capsule,extended release 24 hr lisinopril 20 1 tab PO BID #180 tab 01/24/20 mg-hydrochlorothiazide 12.5 mg tablet bupropion HCl 300 mg 24 hr tablet, 300 mg PO QAM #30 tab 05/05/20 extended release metformin 1,000 mg tablet 1,000 mg PO BID #60 tab 05/22/20 insulin aspart U-100 100 unit/mL 6 - 10 units SQ TID #15 ml 05/29/20 (3 mL) subcutaneous pen meloxicam 15 mg tablet 15 mg PO DAILY PRN #30 tab 06/21/20 clotrimazole-betamethasone 1 %-0.05 % topical cream 1 appln TOPICAL BID PRN econazole 1 % topical cream 1 appln TOPICAL DAILY PRN ketoconazole 2 % shampoo 1 appln TOPICAL DAILY PRN mometasone 0.1 % topical ointment 1 appln TOPICAL DAILY PRN atorvastatin 20 mg tablet 20 mg PO QAM carvedilol 12.5 mg tablet 12.5 mg PO BID insulin glargine 100 unit/mL (3 mL) subcutaneous pen 40 units SQ DAILY albuterol sulfate 90 mcg/actuation aerosol inhaler 2 puffs INHALATION DAILY PRN hydralazine 25 mg tablet 25 mg PO BID cholecalciferol (vitamin D3) 1,250 mcg (50,000 unit) capsule 1,250 mcg PO WEEKLY diltiazem HCl 240 mg capsule,extended release 24 hr 240 mg PO BID lisinopril 20 mg-hydrochlorothiazide 12.5 mg tablet 1 tab PO BID bupropion HCl 300 mg 24 hr tablet, extended release 300 mg PO QAM metformin 1,000 mg tablet 1,000 mg PO BID insulin aspart U-100 100 unit/mL (3 mL) subcutaneous pen 6 - 10 units SQ TID meloxicam 15 mg tablet 15 mg PO DAILY PRN levothyroxine 50 mcg PO QAM pantoprazole 40 mg PO QAM potassium chloride 20 meq PO QAM ASK your surgeon for instructions meloxicam 15 mg tablet 15 mg PO DAILY PRN STOP taking 24 hours before surgery clotrimazole-betamethasone 1 %-0.05 % topical cream 1 appln TOPICAL BID PRN econazole 1 % topical cream 1 appln TOPICAL DAILY PRN ketoconazole 2 % shampoo 1 appln TOPICAL DAILY PRN mometasone 0.1 % topical ointment 1 appln TOPICAL DAILY PRN DO NOT take the morning of surgery cholecalciferol (vitamin D3) 1,250 mcg (50,000 unit) capsule 1,250 mcg PO WEEKLY lisinopril 20 mg-hydrochlorothiazide 12.5 mg tablet 1 tab PO BID metformin 1,000 mg tablet 1,000 mg PO BID insulin aspart U-100 100 unit/mL (3 mL) subcutaneous pen 6 - 10 units SQ TID potassium chloride 20 meq PO QAM Take morning of surgery With a small sip of water, OTHERWISE NOTHING TO EAT OR DRINK AFTER MIDNIGHT: atorvastatin 20 mg tablet 20 mg PO QAM carvedilol 12.5 mg tablet 12.5 mg PO BID albuterol sulfate 90 mcg/actuation aerosol inhaler 2 puffs INHALATION DAILY PRN (use if needed; please bring with you to hospital day of surgery if possible) hydralazine 25 mg tablet 25 mg PO BID diltiazem HCl 240 mg capsule,extended release 24 hr 240 mg PO BID bupropion HCl 300 mg 24 hr tablet, extended release 300 mg PO QAM Take evening before surgery carvedilol 12.5 mg tablet 12.5 mg PO BID albuterol sulfate 90 mcg/actuation aerosol inhaler 2 puffs INHALATION DAILY PRN (if needed) hydralazine 25 mg tablet 25 mg PO BID diltiazem HCl 240 mg capsule,extended release 24 hr 240 mg PO BID lisinopril 20 mg-hydrochlorothiazide 12.5 mg tablet 1 tab PO BID metformin 1,000 mg tablet 1,000 mg PO BID insulin aspart U-100 100 unit/mL (3 mL) subcutaneous pen 6 - 10 units SQ TID Insulin Dependent Diabetic Patients * Test your blood sugar the morning of surgery. If you normally take your insulin glargine in the morning, follow these directions morning of surgery: * If Blood Sugar is GREATER THAN 150, take HALF of your regular dose of: insulin glargine-- take 20 units * If Blood Sugar is LESS THAN 150, DO NOT TAKE ANY: insulin glargine Other Notes If you have any questions please call us at [phone] or [phone] or [phone] or [phone]
--- NOTE | 2020-07-03 10:09 | Anesthesiology Consultation ---
Date of Service July 03, 2020 Assessment & Plan (1) Encounter for pre-operative examination: Chart Review Chart Review: Pending: Refer to Additional Notes / Consult section (pending ECHO (inquiring if PCP will order)) and Patient seen in Pre Admission Testing Will send note to PCP through [facility] regarding II-III/ systolic murmur. No recent ECHOs- will inquire if PCP able to order prior to surgery. - Check BSG AM DOS Per PAT appt on 07/03/20, pt denies any recent travel. Practices social distancing but does not always wear a mask in public. Educated patient to follow up with surgeon's office regarding Covid testing. Educated on importance of self quarantining, social distancing and wearing mask in public both for the patient and household contacts. Did discuss with patient that she needs to be very vigilant about wearing mask from time of Covid testing until surgery. Pt voices understanding. Teaching & Discussion Pre-Anesthesia Teaching/Discussion Notes: Instructed NPO after midnight before surgery,except medications with 15 cc of water. Medication instructions provided according to the PAT guidelines. History Surgery Operation Date: 08/03/20 11:10 Proposed Procedures p Left Total Knee Arthroplasty - Ruperto Giron MD Height/Weight Height: 5 ft 3 in Weight: 109.8 kg Allergies Allergy/AdvReac Type Severity Reaction Status Date / Time prednisone AdvReac Intermediate hyperglycem Verified 05/08/20 10:35 ia dulaglutide [facility] AdvReac Diarrhea Verified 06/26/20 08:38 Medications Home Medications Medication Instructions Recorded Confirmed Last Taken clotrimazole-betamethasone 1 1 appln TOPICAL BID PRN #1 gm 04/27/19 06/26/20 Unknown %-0.05 % topical cream econazole 1 % topical cream 1 appln TOPICAL DAILY PRN #1 gm 04/27/19 06/26/20 Unknown ketoconazole 2 % shampoo 1 appln TOPICAL DAILY PRN #1 ml 04/27/19 06/26/20 Unknown mometasone 0.1 % topical ointment 1 appln TOPICAL DAILY PRN #1 gm 04/27/19 06/26/20 Unknown atorvastatin 20 mg tablet 20 mg PO QAM 06/18/19 06/26/20 Unknown blood sugar diagnostic #10 ea 06/18/19 05/08/20 Unknown carvedilol 12.5 mg tablet 12.5 mg PO BID 06/18/19 06/26/20 Unknown insulin glargine 100 unit/mL (3 40 units SQ DAILY ml 06/18/19 06/26/20 Unknown mL) subcutaneous pen lancets 33 gauge #100 ea 06/18/19 05/08/20 Unknown pen needle, diabetic 32 gauge x #10 ea 06/18/19 05/08/20 Unknown 32" albuterol sulfate 90 mcg/actuation 2 puffs INHALATION DAILY PRN #1 gm 06/22/19 06/26/20 Unknown aerosol inhaler miscellaneous medical supply #1 ea 10/26/19 05/08/20 Unknown hydralazine 25 mg tablet 25 mg PO BID tablet 01/06/20 06/26/20 Unknown cholecalciferol (vitamin D3) 1,250 1,250 mcg PO WEEKLY 90 Days #24 cap 01/11/20 06/26/20 Unknown mcg (50,000 unit) capsule diltiazem HCl 240 mg 240 mg PO BID #180 cap 01/18/20 06/26/20 Unknown capsule,extended release 24 hr lisinopril 20 1 tab PO BID #180 tab 01/24/20 06/26/20 Unknown mg-hydrochlorothiazide 12.5 mg tablet bupropion HCl 300 mg 24 hr tablet, 300 mg PO QAM #30 tab 05/05/20 06/26/20 Unknown extended release metformin 1,000 mg tablet 1,000 mg PO BID #60 tab 05/22/20 06/26/20 Unknown insulin aspart U-100 100 unit/mL 6 - 10 units SQ TID #15 ml 05/29/20 06/26/20 Unknown (3 mL) subcutaneous pen meloxicam 15 mg tablet 15 mg PO DAILY PRN #30 tab 06/21/20 06/26/20 Unknown levothyroxine 50 mcg PO QAM 06/26/20 06/26/20 Unknown pantoprazole 40 mg PO QAM 06/26/20 06/26/20 Unknown potassium chloride 20 meq PO QAM 06/26/20 06/26/20 Unknown Past Medical History Medical History Anxiety Depression DM type 2 (diabetes mellitus, type 2) IDDM- STABLE PER PATIENT-RELATIVELY CONTROLLED GERD (gastroesophageal reflux disease) WELL CONTROLLED AND STABLE History of gout NO RECENT FLARES Hyperlipidemia Hypertension Hypothyroidism IBS (irritable bowel syndrome) NO RECENT FLARES Osteoarthritis Sleep apnea CPAP Slow to wake up after anesthesia Exercise / Class Metabolic Activity II 4-5 Yardwork/Stairs/Walk up hill (ONE FLIGHT OF STAIRS- NO CHEST PAIN OR SOB ) Past Family History Family History Father Diabetes Heart disease Mother Diabetes Heart disease Brother Diabetes Heart disease Myocardial infarction Hypertension Other No family history of adverse response to anesthesia Denies family history of Ovarian cancer Prostate cancer Deep vein thrombosis Osteoporosis Cerebral aneurysm Alzheimer disease Bipolar disorder Clotting disorder Crohn's disease Dementia Depression Kidney disease Breast cancer Lung cancer COPD (chronic obstructive pulmonary disease) Colorectal cancer Lung disease Colonic polyp Stroke Asthma Past Surgical History Surgical History H/O knee surgery History of cholecystectomy History of colonoscopy History of esophagogastroduodenoscopy (EGD) History of hysterectomy History of tubal ligation History of umbilical hernia repair Past Anesthesia History No Hx of Anesthesia Complications (GROGGY POST OP- NO REINTBUATION OR ICU STAY) and No Family Hx of Anesthesia Complications History of PONV No Hx of PONV and No Hx of Motion Sickness Social History Smoking Status: Never smoker Do You Dip or Chew Tobacco: No Hx Alcohol Use: Yes alcohol intake frequency: holidays/special occasions only Hx Substance Use: No substance use type: does not use Review of Systems Patient denies chest pain, shortness of breath, dyspnea on exertion, cough, wheezing, palpitations. No hx of seizures, stroke, DE. No hx of blood clots or blood transfusions Physical Exam Vital Signs VITALS BP 155/81 P 52 TEMP 98.2 SP02 96% RESP 16 Constitutional no acute distress ENMT Mouth: no TMJ clicking Thyromental Distance: < 3.5 Finger Breadths (3.0) Mallampati Class: III Denies missing or loose teeth Neck + thick neck and + limited neck extension (minimal) Respiratory normal respiratory effort; no respiratory distress Auscultation: no wheezes Cardiovascular Rate/Rhythm: regular rate and regular rhythm Heart Sounds: + murmur (II-III systolic murmur ) Vessels: no carotid bruit Heart sounds mildly diminished throughout Musculoskeletal Spine: no pain with cervical ROM Neurologic moves all extremities Psychiatric Orientation: alert Testing Laboratory Results 07/03/20 10:40 07/03/20 10:40 PT 10.5 Seconds (9.0-12.0) 07/03/20 10:40 INR 1.0 (0.9-1.1) 07/03/20 10:40 APTT 28.6 Seconds (21.0-31.0) 07/03/20 10:40 Hemoglobin A1c 7.3 % (4.5-5.6) H 07/03/20 10:40 Blood Type O Positive 07/03/20 10:40 Antibody Screen NEGATIVE 07/03/20 10:40 Electrocardiogram Date: 07/03/20 Findings: + SB @ (56) Non specific intra-ventricular conduction delay. When compared to EKG from Jan 02, 2018- no significant change per cardio Chest X-Ray Date: 07/03/20 Findings: + NAD
--- NOTE | 2020-07-03 12:00 | XRay Report ---
TWO VIEW CHEST CLINICAL HISTORY: Preoperative examination. FINDINGS: PA and lateral chest radiographs are compared to study dated 01/02/2018. The cardiomediastin al silhouette is unremarkable. The lungs and pleural spaces are clear. There is no pneumothorax. The bony thorax appears intact. Cholecystectomy clips are noted in the right upper quadrant. IMPRESSION: No active disease in the chest. ACT 112: Negative or not required by law. Electronically signed by: Abdias Cerda M.D. 07/03/2020 11:58 AM
[2020-07-03 12:28] LABS: Basophils # (auto) 0.02 K/uL (0-0.2); Basophils % (auto) 0.2 %; Eosinophils % (auto) 2.5 %; Hematocrit (blood only) 43.4 % (37-47); Hemoglobin 14.5 g/dL (12.0-16.0); Immature Granulocytes # (auto) 0.03 K/uL (0.00-0.02); Immature Granulocytes % (auto) 0.4 %; Lymphocytes # (auto) 1.63 K/uL (1.2-3.4); Lymphocytes % (auto) 20.2 %; Mean Corpuscular Hemoglobin 30.1 pg (25-34); Mean Corpuscular Hgb Conc 33.4 g/dL (32-36); Mean Platelet Volume 11.4 fL (7.4-10.4); Monocytes # (auto) 0.41 K/uL (0.11-0.59); Monocytes % (auto) 5.1 %; Neutrophils # (auto) 5.79 K/uL (1.4-6.5); Neutrophils % (auto) 71.6 %; Platelet Count 238 K/uL (130-400); RDW Coefficient of Variation 13.3 % (11.5-14.5); RDW Standard Deviation 43.7 fL (36.4-46.3); Red Blood Count 4.82 M/uL (4.2-5.4); White Blood Count 8.08 K/uL (4.8-10.8)
[2020-07-03 12:39] LABS: Estimated Average Glucose 163 mg/dl; Hemoglobin A1C 7.3 % (4.5-5.6)
[2020-07-03 12:45] LABS: Partial Thromboplastin Time 28.6 Seconds (21.0-31.0); Prothrombin Time 10.5 Seconds (9.0-12.0)
[2020-07-03 12:50] LABS: BUN Creatinine Ratio 10.5 (10-20); Calcium 9.5 mg/dl (8.5-10.1); Creatinine Clr Calc Pharmacy 91.1 ml/min; Est GFR (African American) 91.3; Est GFR (Non-African American) 78.8; Potassium 3.6 mmol/L (3.5-5.1)
--- NOTE | 2020-07-03 15:13 | Electrocardiogram Report ---
Test Reason : Blood Pressure : / mmHG Vent. Rate : 056 BPM Atrial Rate : 056 BPM P-R Int : 192 ms QRS Dur : 118 ms QT Int : 472 ms P-R-T Axes : 049 039 062 degrees QTc Int : 455 ms Sinus bradycardia Non-specific intra-ventricular conduction delay Borderline ECG When compared with ECG of 02-JAN-2018 21:25, No significant change was found Confirmed by Jesus Zuleta ([id number]) on 07/03/2020 3:13:24 PM Referred By: Ruperto Giron Confirmed By:Jesus Zuleta
--- NOTE | 2020-07-26 13:07 | History and Physical Report ---
DATE OF ADMISSION: 08/03/2020 CHIEF COMPLAINT: Left knee pain and discomfort. HISTORY OF PRESENT ILLNESS: The patient is a 54-year-old female referred by my partner, Dr. Agarwal, for surgical treatment of her left knee. She has a several year history of persistent and progressive increasing left knee pain and discomfort. She has been through extensive conservative treatment including oral medicines and injections. The injections have become less successful over time. Pain is mostly medial, but some global pain. She has limited walking tolerance. She has difficulty going up and down stairs. She has nighttime pain. She would like to have her knee fixed. Of note, the patient does have a history of eczema with some dry skin and treated with topical ointment. PAST MEDICAL HISTORY: 1. Hypertension. 2. Sleep apnea with CPAP machine. 3. Anxiety. 4. Diabetes x8 years. 5. Low back pain/sciatica. PAST SURGICAL HISTORY: Includes herniorrhaphy. ALLERGIES: None. CURRENT MEDICINES: Include: 1. Insulin. 2. Lisinopril. 3. Pantoprazole. 4. Diltiazem. 5. Carvedilol. 6. Atorvastatin. SOCIAL HISTORY: A 54-year-old female. She lives in [place]. No significant smoking or alcohol intake. FAMILY HISTORY: Noncontributory. REVIEW OF SYSTEMS: Significant for diabetes for 8 years. Denies any current chest pain or shortness of breath. She does have sleep apnea and wears a CPAP machine. No history of DVT or PE. No known bleeding problems. PHYSICAL EXAMINATION: GENERAL: Shows a pleasant, middle-aged female. Looks to be in reasonably good health. HEENT: Benign. NECK: Supple, no lymphadenopathy. LUNGS: Clear to auscultation. HEART: Regular rate and rhythm. ABDOMEN: Soft, nontender, nondistended. EXTREMITIES: Grossly neurovascularly intact except as follows: Examination of the left knee reveals the patient ambulates independently. She does walk and limp a little bit on the left side. Waddles a little bit with her gait. She has got varus alignment to her knee. Moderate soft tissue envelope. Range of motion about 5-10 degrees short of full extension to 120 degrees of flexion. There is no instability. No pain with hip motion. X-RAYS: X-rays of the left knee were reviewed. It shows advanced left knee DJD. She has complete loss of her medial joint space. This has progressed since her films in September. ASSESSMENT: A 54-year-old female with advanced left knee degenerative joint disease. She has failed conservative treatment. She would like to have her knee fixed. PLAN: We will proceed with a left knee replacement. I encouraged her to continue working on making her skin and her eczema as good as possible preoperatively. The risks and benefits of total knee replacement were explained to the patient including but not limited to DVT, PE, , infection, neurological injury, vascular injury, bleeding problem, pain, limited range of motion, stiffness, failure to relieve her symptoms, incomplete relief of symptoms, need for further surgery in the future, need for revision surgery, etc. The patient understands and desires to proceed. Informed consent was obtained. We will likely use some vancomycin in her cement due to her concerns with increased risk of infection due her eczema. We did talk about holding her lisinopril on the morning of surgery.
[~2020-08-03 06:50] MED LIST changes: +ACETAMINOPHEN 500 MG TAB PO SCH; +BUPIVACAINE 0.5 % 5 MG/1 ML PF 10ML VIAL ONE; +BUPIVACAINE LIPOSOME/PF 266 MG, BUPIVACAINE/EPINEPHRINE 50 ML, SODIUM CHLORIDE 0.9% 30 ... INFIL SCH; +CEFAZOLIN 2000MG 2,000 MG/15 ML SYR IV SCH; -CYM60 PO; -DLTCD/240 PO; -DULA1INJ INJ; +FAMOTIDINE 20 MG TAB PO SCH; +GABAPENTIN 900 MG DOSE PO SCH; -GARC1TAB PO; -GLIP1TAB85 PO; -HYDR-4717 PO; -INSDGIPEN PO; -LISI-787 PO; -LPT10 PO; +LR 500ML BOLUS, THEN 15ML/HR IV SCH; +LR 60ML/HR IV SCH; -METF-384 PO; -NAPR1TAB9 PO; -ONDA4TAB10 SL; -PANT40TA2 PO; -POTA-639 PO; +ROPIVACAINE 0.5% 5 MG/ML 30 ML VIAL ONE; +TRANEXAMIC ACID 1,000 MG **IV Intra-op IV SCH; -VNTHFA/IN INH
[2020-08-03] MEDS ORDERED: PROPOFOL IV EMULSION 10 MG/ML 20 ML VIAL IV ONE (08:07)
[2020-08-03] MEDS ORDERED: LIDOCAINE HCL 2% 2 ML VIAL/AMP(20MG/ML) INFIL ONE (08:07)
[2020-08-03] MEDS ORDERED: MIDAZOLAM HCL 1 MG/ML 2ML VIAL ONE (08:08)
[2020-08-03] MEDS ORDERED: BACITRACIN INJ 50,000 UNIT VIAL ONE (08:47)
[2020-08-03] MEDS ORDERED: BUPIVACAINE LIPOSOME 1.3% 266 MG/20 ML VIAL ONE (08:47)
[2020-08-03] MEDS ORDERED: BUPIVACAINE 0.25% 30 ML VIAL ONE (08:48)
[2020-08-03] MEDS ORDERED: SODIUM CHLORIDE 0.9% PF 50 ML VIAL ONE (08:48)
[2020-08-03] MEDS ORDERED: EPINEPHrine INJ 1 MG/ML AMP ONE (08:48)
[2020-08-03] MEDS ORDERED: VANCOMYCIN HCL 1000MG/20ML VIAL ONE (09:02)
--- NOTE | 2020-08-03 09:08 | History & Physical Bridge Note ---
Date of Service August 03, 2020 History & Physical Bridge Note I have examined the patient, reviewed the History & Physical and in the interval since the performance of the History & Physical I have noted the following changes of clinical significance: no changes noted
[2020-08-03] MEDS ORDERED: ePHEDrine sulfate 50 MG/ML AMP IV PRN (09:58)
[2020-08-03] MEDS ORDERED: fentaNYL citrate 100 MCG/2 ML VIAL IV PRN (09:58)
[2020-08-03] MEDS ORDERED: ATROPINE SULFATE 0.1 MG/ML 10ML SYR IV PRN (09:58)
[2020-08-03] MEDS ORDERED: ONDANSETRON INJ 2 MG/ML 2 ML VIAL IV PRN ×2 (09:58→12:18)
[2020-08-03] MEDS ORDERED: HYDROmorphone INJ 2 MG/ML SYR/VIAL IV PRN (09:58)
--- NOTE | 2020-08-03 10:53 | Post Operative Brief Note ---
PG Immediate Post Op with CF Date of Surgery August 03, 2020 Pre & Post Diagnosis Operation Date: 08/03/20 09:05 Pre-Op Diagnosis: Left Knee Degenerative Joint Disease, Knee Pain Post-Op Diagnosis: Left Knee Degenerative Joint Disease, Knee Pain I identified the patient and participated in the time-out.: Yes Procedure Operation Date: 08/03/20 09:05 Actual Procedures p Left Total Knee Arthroplasty(Left) - Ruperto Giron MD Surgeon Ruperto Giron MD Steel Post Installer Mary, PAC Estimated Blood Loss 50 Findings Consistent with Post-Op Diagnosis Fluids 1000 cc Specimens Specimen Description: Permanent A: Left Knee Bone and Tissue Drains Vega Catheter Anesthesia Type Spinal MAC Complications none Disposition Accompanied Patient To Recovery: No Disposition: Recovery Room
--- NOTE | 2020-08-03 11:25 | XRay Report ---
XR knee LT 1 or 2V routine CLINICAL HISTORY: Postoperative evaluation. COMPARISON: Left knee radiographs September 21, 2019. FINDINGS: Alignment of the total left knee arthroplasty is anatomic. There is no fracture or unexpec pearl radiopaque foreign body. There are skin ghazal. IMPRESSION: Expected findings following total left knee arthroplasty. ACT 112: Negative or not required by law. Electronically signed by: Trevor Barrios M.D. 08/03/2020 11:24 AM
--- NOTE | 2020-08-03 11:35 | Anesthesiology Progress Note ---
Date of Service August 03, 2020 Anesthesia Post Procedure Vital Signs Vital Signs: Temp Pulse Pulse Resp BP BP Pulse Ox 08/03/20 11:29 55 L 16 151/71 H 98 08/03/20 11:20 52 L 16 148/72 H 100 08/03/20 11:10 58 L 16 137/63 100 08/03/20 11:02 36.2 C L 65 16 146/68 H 95 08/03/20 08:20 36.8 C 60 20 184/68 H 96 08/03/20 07:30 37.2 C 65 20 193/82 H 95 Pain Intensity Left Knee: Pain Intensity: 4 Transfer of Care Handoff Completed per policy Notes Mental Status: alert / awake / arousable and participated in evaluation Patient Amnestic to Procedure: Yes Nausea / Vomiting: adequately controlled Pain: adequately controlled Airway Patency, RR, SpO2: stable & adequate BP & HR: stable & adequate Hydration State: stable & adequate Neuraxial Anesthesia: was administered and sensory block is resolving Anesthetic Complications: no major complications apparent
[2020-08-03] MEDS ORDERED: METOCLOPRAMIDE HCL INJ 5 MG/ML 2 ML VIAL IV PRN (12:18)
[2020-08-03] MEDS ORDERED: NALOXONE HCL 0.4 MG/1 ML VIAL/CARP IV PRN (12:18)
[2020-08-03] MEDS ORDERED: bisacodyL 10 MG SUPP PR PRN (12:18)
[2020-08-03] MEDS ORDERED: CARBOHYDRATES FOR HYPOGLYCEMIA PO PRN (12:18)
[2020-08-03] MEDS ORDERED: PHARMACY GLYCEMIC MGMT CONSULT PRN (12:18)
[2020-08-03] MEDS ORDERED: ALUMINUM/MAGNESIUM SUSP 30 ML UDC PO PRN (12:18)
[2020-08-03] MEDS ORDERED: GLUCAGON FOR INJ 1 MG VIAL SQ PRN (12:18)
[2020-08-03] MEDS ORDERED: MOMETASONE FUROATE 0.1% OINT 15 GM TUBE EXT PRN (12:18)
[2020-08-03] MEDS ORDERED: ECONAZOLE NITRATE 1% CRM 15 GM TUBE TOP PRN (12:18)
[2020-08-03] MEDS ORDERED: CLOTRIMAZOLE/BETAMETHASONE CR 15 GM TUBE EXT PRN (12:18)
[2020-08-03] MEDS ORDERED: ALBUTEROL HFA 8 GM INHALER INH PRN (12:18)
[2020-08-03] MEDS ORDERED: GLUCOSE 40% GEL 15 GM TUBE PO PRN (12:18)
[2020-08-03] MEDS ORDERED: HYDROmorphone INJ 0.5 MG/0.5 ML SYR IV PRN (12:18)
[2020-08-03] MEDS ORDERED: GLUCOSE 10 TABS/TUBE PO PRN (12:18)
[2020-08-03] MEDS ORDERED: MAGNESIUM HYDROXIDE SUSP 30 ML UDC PO PRN (12:18)
[2020-08-03] MEDS ORDERED: DEXTROSE 50% 50 ML SYRINGE IV PRN (12:18)
--- NOTE | 2020-08-03 13:29 | Pharmacy Report ---
Pharmacy Glycemic Short Note 2 - Date of Service August 03, 2020 - Glycemic Short BSG Results (Last 24 hours): 08/03/20 08/03/20 08/03/20 07:10 11:03 12:05 POC Glucose 166 H 135 H 134 H OUTPATIENT ANTIDIABETIC REGIMEN: * Lantus 40 units SQ daily @ 1900 * NovoLog 6-10 units SQ TIDM * Metformin 1,000mg PO BIDM * A1c = 7.3% on 07/03/20 ASSESSMENT: * 54yo T2DM female with adequate degree of outpatient control per recent A1c * Pt is maintained on SQ basal bolus insulin regimen + metformin * Will hold metformin for admission and utilize SQ basal bolus insulin regimen which is the recommended regimen for inpatient glycemic control. * Will continue outpatient dosing of basal insulin and change bolus insulin to dosing per CF/CR since PO intake can vary significantly from outpatient to inpatient. * Will titrate orders based on BSG trends * Goal is to maintain BSGs <200 mg/dl (ideally <150 mg/dl) to prevent post op complications PLAN FOR INPATIENT GLYCEMIC CONTROL: * Hold outpatient oral diabetes medications * Basal insulin * Lantus 40 units SQ daily @ 1900 * Bolus insulin * NovoLog per scale ACHS or Q6hrs while NPO * Goal Range: Low 110 mg/dL - High 140 mg/dL * Correction Factor: 20 mg/dL/unit * Nutritional / Prandial insulin per carb ratio of 1 unit per 6 grams CHO consumed PLAN FOR DISCHARGE: * A1c is in goal range for patient based on age/co-morbidities. * No changes needed to outpatient regimen.
[2020-08-03] MEDS: KETOROLAC 30 MG/ML VIAL IV SCH ×3 (13:40→23:54)
[2020-08-03] MEDS: SODIUM CHLORIDE 0.9% 1000ML 1,000 ML IV SCH ×2 (13:40→23:51)
[2020-08-03] MEDS: INSULIN ASPART 100 UNITS/ML 3 ML PEN SQ SCH ×3 (14:03→21:20)
[2020-08-03] MEDS: Scopolamine CHECK PATCH PLACEMENT SCH ×3 (15:15→23:55)
[2020-08-03] MEDS: ACETAMINOPHEN 500 MG TAB PO SCH ×2 (15:15→23:53)
[2020-08-03] MEDS: [UNRECOGNIZED DRUG - OTHER] SCH ×2 (15:18→23:53)
[2020-08-03] MEDS: CEFAZOLIN 2000MG 2,000 MG/15 ML SYR IV SCH ×2 (17:28→23:55)
[2020-08-03] MEDS: ASCORBIC ACID 500 MG TAB PO SCH (17:29)
[2020-08-03] MEDS ORDERED: TRANEXAMIC ACID / 0.7% NACL 1,000 MG/100 ML BAG IV SCH (18:00)
[2020-08-03] MEDS ORDERED: INSULIN GLARGINE SOLOSTAR 100 UNITS/ML 3 ML PEN SQ SCH (19:00)
--- NOTE | 2020-08-03 19:01 | Operative Report ---
Post Operative Report Pre & Post Diagnosis Operation Date: 08/03/20 09:05 Pre-Op Diagnosis: Left Knee Degenerative Joint Disease, Knee Pain Post-Op Diagnosis: Left Knee Degenerative Joint Disease, Knee Pain I identified the patient and participated in the time-out.: Yes Procedure Operation Date: 08/03/20 09:05 Actual Procedures p Left Total Knee Arthroplasty(Left) - Ruperto Giron MD Surgeon Ruperto Giron MD Customer Marketing Assistant Mary, PAC Estimated Blood Loss 50 Findings Consistent with Post-Op Diagnosis Operative findings revealed advanced left knee DJD with extensive grade 4 efro-po-jewv disease the medial and patellofemoral compartments. She had a varus deformity to her knee. She had osteophytes primarily in the medial compartment. Moderate-sized joint effusion. Fluids 1000 cc. Specimens Left knee sent for pathology. Drains None. Anesthesia Type Spinal MAC Complications none Disposition Disposition: Recovery Room Indications Patient is a 54-year-old female is had a several year history of gradually progressive increasing left knee pain discomfort. She has been through extensive conservative treatment which became less successful over time. Was really limiting her lifestyle. X-rays reveal advanced left knee DJD. She elected proceed with surgical treatment. Description of Procedure Operative implants consist of: 1. Biomet Vanguard size 65 left posterior stabilized femoral component. 2. Biomet size 71 tibial tray. 3. 10 mm posterior stabilized polyethylene insert. 4. 31 x 8 all poly-patella. The patient was taken to the operating room identified and placed on the operating table supine position protectors were properly padded. A Vega catheter was placed in sterile fashion. A left thigh turn was then placed in the left lower extremities and prepped and draped in usual sterile fashion. The left leg was elevated and exsanguinated with use of an Esmarch and turns placed at 300 mmHg. An anterior approach to the left knee was then performed to longitudinal incision centered over the patella. Sharp dissection was carried through subcutaneous tissue down to the extensor mechanism. A medial parapatellar arthrotomy incision was made. Some subperiosteal dissection was carried out medially. The fat pad was resected from each patella tendon. Lateral patellofemoral ligament was released. Patella was subluxated laterally and the knee was flexed. The osteophytes were taken off the distal femur. The ACL and PCL were then released from distal femur the tibia subluxated anteriorly. The external tibial alignment jig was then placed in the interface the tibia and adjusted 14 mm medially. Proximal tibial cut was made to remove about 2 mm of bone from most efficient aspect medial till plateau. The tibia was then sized to a size 71. Attention then drawn the femur. The distal femur was entered with a sharp drill. Intramedullary canal was suction. A left 5 degree valgus cutting guide was placed. The distal femoral cutting block was pinned in place. The distal femoral cut was made to take an additional 3 mm of bone off distal femur. The femur was then sized to a size 65. The AP cutting block was pinned parallel to the epicondylar axis which was 6 degrees of external rotation. The anterior cut, anterior chamfer, posterior cut, posterior chamfer cuts were made. Box cutting guide was placed in just slight lateral and the box cut was made. The knee was flexed with the remnants of the medial lateral menisci were excised. The osteophytes were taken off the posterior aspect of the femur. A trial femoral component was placed. The tibial tray was pinned in maximum external rotation and the drill and stem punch were used to create defect in proximal tip for the tibial tray. The knee was then trialed and then 10 mm insert was fit most appropriately. Attention drawn to the patella. The patella was cleaned of all soft tissues. Patella thickness measured 21 mm in thickness and was cut down to 14. Was sized to a size 31 patella. The lug holes were drilled for 31 patella. The lateral osteophyte is moved. Patella button was placed. Knee was taken through range of motion patella tracked nicely with no thumbs test. Attention drawn to placing permanent components. All trial components were removed. A bone plug was placed in the distal femur limit blood loss. A double batch Pal[place]os G cement was mixed. I added an additional gram of vancomycin due to her significant obesity and history of overlying a skin condition which I felt placed her at increased risk for infection. Biomet Vanguard size 65 left posterior stabilized femoral component, size 71 tibial tray, 10 mm posterior box polyethylene insert, and a 31 x 8 all poly-patella were then cemented in place. The knee was brought out into full extension until cement hardened. Final cement check was then performed. The pericapsular tissues were injected with total 100 cc of combination of 20 cc of Exparel, 30 cc normal saline, 50 cc of quarter percent Marcaine with epinephrine. Patient did receive 1 g of tranexamic acid per the tech was then let down for final tourniquet time of 60 minutes. Hemostasis assured use electrocautery. Extensor mechanism then closed with combination 1 PDS suture #1 Vicryl suture in [id number] fashion. Extensor mechanism checked found to be intact the subcutaneous tissue was then closed with 2 Dexon suture in a buried interrupted fashion skin was closed skin ghazal. Leg was then cleaned dried a sterile dressed composed of Xeroform, 4 x 4's, sterile cast padding, Earle bandage were applied. Patient was then transferred to the recovery room in stable condition. The patient tolerated procedure well and there were no complications. Dayron Hernandez, my physician fish hatchery assistant, was present for the entire procedure. His assistance was essential and required for appropriate patient positioning, prepping and draping, surgical exposure, performing the technical details the operation, placement of the implants, closure of the wound, and placement of the sterile bandage. I attest to the content of the Intraoperative Record and any orders documented therein. Any exceptions are noted below.
[2020-08-03] MEDS: dilTIAZem HCL 240 MG CAPCR PO SCH (20:01)
[2020-08-03] MEDS: SENNA 8.6 MG TAB PO SCH (20:01)
[2020-08-03] MEDS: LISINOPRIL/HCTZ 20/12.5MG 1 TAB TAB PO SCH (20:01)
[2020-08-03] MEDS: DOCUSATE SODIUM 100 MG CAP PO SCH (20:01)
[2020-08-03] MEDS: ASPIRIN 81 MG ECTAB PO SCH (20:01)
[2020-08-03] MEDS: TAPENTADOL HCL ER 50 MG TABCR PO SCH (20:02)
[2020-08-03] MEDS: carvediloL 12.5 MG TAB PO SCH (20:02)
[2020-08-04] MEDS: OXYCODONE HCL IR 5 MG TAB (IMMEDIATE RELEASE) PO PRN ×2 (03:49→09:19)
[2020-08-04] MEDS: LEVOTHYROXINE SODIUM 50 MCG TABLET PO SCH (06:06)
[2020-08-04] MEDS: KETOROLAC 30 MG/ML VIAL IV SCH ×3 (06:06→17:33)
[2020-08-04 06:21] LABS: Hemoglobin 12.1 g/dL (12.0-16.0); Mean Corpuscular Hemoglobin 30.1 pg (25-34); Mean Corpuscular Hgb Conc 33.6 g/dL (32-36); Mean Corpuscular Volume 89.6 fL (80-100); Mean Platelet Volume 11.1 fL (7.4-10.4); Platelet Count 211 K/uL (130-400); RDW Coefficient of Variation 13.1 % (11.5-14.5); Red Blood Count 4.02 M/uL (4.2-5.4); White Blood Count 10.03 K/uL (4.8-10.8)
[2020-08-04 06:47] LABS: BUN Creatinine Ratio 16.7 (10-20); Calcium 8.7 mg/dl (8.5-10.1); Creatinine Clr Calc Pharmacy 81.5 ml/min; Est GFR (African American) 80.8; Est GFR (Non-African American) 69.7; Potassium 3.8 mmol/L (3.5-5.1)
[2020-08-04] MEDS: ASPIRIN 81 MG ECTAB PO SCH ×2 (08:46→21:33)
[2020-08-04] MEDS: ASCORBIC ACID 500 MG TAB PO SCH ×2 (08:46→17:35)
[2020-08-04] MEDS: Scopolamine CHECK PATCH PLACEMENT SCH ×3 (08:46→21:36)
[2020-08-04] MEDS: LISINOPRIL/HCTZ 20/12.5MG 1 TAB TAB PO SCH ×2 (08:46→21:33)
[2020-08-04] MEDS: dilTIAZem HCL 240 MG CAPCR PO SCH ×2 (08:46→21:30)
[2020-08-04] MEDS: BuPROPion XL 300 MG TABCR PO SCH (08:47)
[2020-08-04] MEDS: MULTIVITAMIN TAB PO SCH (08:47)
[2020-08-04] MEDS: carvediloL 12.5 MG TAB PO SCH ×2 (08:47→21:30)
[2020-08-04] MEDS: POTASSIUM CHLORIDE 20 MEQ TABCR PO SCH (08:47)
[2020-08-04] MEDS: ACETAMINOPHEN 500 MG TAB PO SCH ×2 (08:47→15:15)
[2020-08-04] MEDS: PANTOprazole 40 MG TAB PO SCH (08:47)
[2020-08-04] MEDS: DOCUSATE SODIUM 100 MG CAP PO SCH ×2 (08:47→21:33)
[2020-08-04] MEDS: ATORVASTATIN 20 MG TAB PO SCH (08:47)
[2020-08-04] MEDS: TAPENTADOL HCL ER 50 MG TABCR PO SCH ×2 (08:48→21:33)
[2020-08-04] MEDS: [UNRECOGNIZED DRUG - OTHER] SCH ×3 (08:48→21:37)
[2020-08-04] MEDS: INSULIN ASPART 100 UNITS/ML 3 ML PEN SQ SCH ×4 (08:51→21:25)
--- NOTE | 2020-08-04 09:08 | Progress Notes ---
DATE: 08/04/2020 SUBJECTIVE: A 54-year-old female postop day 1 from a left knee replacement. She is doing okay. Had bit more pain last night. Had some oxycodone and made her feel a little bit funny. Her pain is better. No chest pain or shortness of breath. Not feeling dizzy or lightheaded. OBJECTIVE: VITAL SIGNS: Temperature 36.4. Vital signs stable. GENERAL: Physical examination shows a pleasant, middle-aged female. She is sitting up in bed, looks comfortable. She is awake, alert and oriented. LUNGS: Clear to auscultation. HEART: Has a regular rate and rhythm. ABDOMEN: Soft, nontender, nondistended. EXTREMITIES: Grossly neurovascularly intact except as follows. Examination of the left leg reveals the leg to be well aligned. Dressing is clean, dry and intact. Knee alignment is anatomic. She can dorsiflex and plantarflex her foot appropriately. She is neurologically intact. LABORATORY DATA: Hemoglobin 12.1. Hematocrit 36.0. Electrolytes are stable. ASSESSMENT: A 54-year-old female postop day 1 from left knee replacement, doing pretty well. Having a bit more pain and took some pain medicine. It has helped her pain, but felt a little bit funny afterwards, which is not unusual. We will have to see how things go as far as her pain meds and adjustment as needed. PLAN: 1. DVT prophylaxis include thigh-high TEDs, SCDs, and aspirin twice a day. 2. PT/OT. Weight bear as tolerated. Left total knee protocol. 3. Pain control, doing okay with current pain regimen. We will have to see how she does with further dose of oxycodone. May consider changing to tramadol or Dilaudid. 4. Disposition: She is planning to be discharged to home with some home health and family's assistance once medically stable.
--- NOTE | 2020-08-04 12:58 | Pharmacy Report ---
Pharmacy Glycemic Short Note 2 - Date of Service August 04, 2020 - Glycemic Short BSG Results (Last 24 hours): 08/03/20 08/03/20 08/04/20 17:06 20:32 04:10 Glucose POC Glucose 128 H 188 H 170 H 08/04/20 08/04/20 08/04/20 06:04 08:12 12:05 Glucose 180 H POC Glucose 211 H 185 H OUTPATIENT ANTIDIABETIC REGIMEN: * Lantus 40 units SQ daily @ 1900 * NovoLog 6-10 units SQ TIDM * Metformin 1,000mg PO BIDM * A1c = 7.3% on 07/03/20 ASSESSMENT: * Patient received total of 56 units of insulin yesterday; 40 units basal + 16 units bolus. * Fasting BSG today was greater than 200. Lantus dose was increased for tonight. * Post prandial BSGs were elevated HS and at noon today. Novolog CF was tightened. PLAN FOR INPATIENT GLYCEMIC CONTROL: * Hold outpatient oral diabetes medications * Basal insulin- increased * Lantus 50 units SQ daily @ 1900 * Bolus insulin- CF tightened * NovoLog per scale ACHS or Q6hrs while NPO * Goal Range: Low 110 mg/dL - High 140 mg/dL * Correction Factor: 15 mg/dL/unit * Nutritional / Prandial insulin per carb ratio of 1 unit per 6 grams CHO consumed PLAN FOR DISCHARGE: * A1c is in goal range for patient based on age/co-morbidities. * No changes needed to outpatient regimen.
[2020-08-04] MEDS ORDERED: INSULIN GLARGINE SOLOSTAR 100 UNITS/ML 3 ML PEN SQ SCH (19:00)
[2020-08-04] MEDS: SENNA 8.6 MG TAB PO SCH (21:33)
[2020-08-05] MEDS: KETOROLAC 30 MG/ML VIAL IV SCH ×2 (00:08→06:23)
[2020-08-05] MEDS: ACETAMINOPHEN 500 MG TAB PO SCH ×2 (00:08→07:38)
[2020-08-05] MEDS ORDERED: INSULIN ASPART 100 UNITS/ML 3 ML PEN SQ SCH (02:00)
[2020-08-05] MEDS: LEVOTHYROXINE SODIUM 50 MCG TABLET PO SCH (06:23)
[2020-08-05 07:09] VITALS: PULSE 57; TEMP 98.1; O2SAT 95
[2020-08-05] MEDS: [UNRECOGNIZED DRUG - OTHER] SCH (07:35)
[2020-08-05] MEDS: Scopolamine CHECK PATCH PLACEMENT SCH (07:35)
[2020-08-05] MEDS: TAPENTADOL HCL ER 50 MG TABCR PO SCH (07:36)
[2020-08-05] MEDS: carvediloL 12.5 MG TAB PO SCH (07:36)
[2020-08-05] MEDS: dilTIAZem HCL 240 MG CAPCR PO SCH (07:36)
[2020-08-05] MEDS: POTASSIUM CHLORIDE 20 MEQ TABCR PO SCH (07:37)
[2020-08-05] MEDS: MULTIVITAMIN TAB PO SCH (07:37)
[2020-08-05] MEDS: PANTOprazole 40 MG TAB PO SCH (07:37)
[2020-08-05] MEDS: ASPIRIN 81 MG ECTAB PO SCH (07:37)
[2020-08-05] MEDS: ATORVASTATIN 20 MG TAB PO SCH (07:37)
[2020-08-05] MEDS: OXYCODONE HCL IR 5 MG TAB (IMMEDIATE RELEASE) PO PRN (07:37)
[2020-08-05] MEDS: ASCORBIC ACID 500 MG TAB PO SCH (07:38)
[2020-08-05] MEDS: BuPROPion XL 300 MG TABCR PO SCH (07:38)
[2020-08-05] MEDS: DOCUSATE SODIUM 100 MG CAP PO SCH (07:38)
[2020-08-05] MEDS: LISINOPRIL/HCTZ 20/12.5MG 1 TAB TAB PO SCH (07:38)
[2020-08-05] MEDS: INSULIN ASPART 100 UNITS/ML 3 ML PEN SQ SCH ×2 (07:41→12:24)
[2020-08-05 08:54] VITALS: BP 184/68
--- NOTE | 2020-08-05 08:56 | Progress Notes ---
DATE: 08/05/2020 SUBJECTIVE: A 54-year-old female postop day 2 from a left knee replacement. She is doing reasonably well. Little bit better today as far as pain and just nausea. No chest pain or shortness of breath. Not feeling dizzy or lightheaded. OBJECTIVE: VITAL SIGNS: Temperature 36.7. Vital signs stable. GENERAL: Physical examination shows a pleasant, middle-aged female. She is sitting up in her bed and eating breakfast. Looks pretty comfortable. EXTREMITIES: Examination of the left leg reveals the leg to be well aligned. She can dorsiflex and plantarflex her foot appropriately. She is neurologically intact. ASSESSMENT: A 54-year-old female postop day 2 from left knee replacement, doing reasonably well. Pain is controlled. She is neurologically intact. PLAN: 1. DVT prophylaxis including thigh-high TEDs, SCDs and aspirin twice a day. 2. PT/OT, weightbear as tolerated. Left total knee protocol. 3. Pain control, doing well with current pain regimen. 4. Disposition: Plan to discharge to home with some home health likely later today.
[2020-08-05] MEDS ORDERED: INSULIN GLARGINE SOLOSTAR 100 UNITS/ML 3 ML PEN SQ SCH (19:00)
--- NOTE | 2020-08-07 06:36 | Discharge Summary ---
Date of Service August 07, 2020 Admission HPI Per Admitting Provider Documented in the H & P Admission Exam (Per Admitting) Constitutional Documented in the H & P Discharge Data Consultations 08/03/20 12:18 Consult Case Management - Discharge Planning Routine Procedures Performed Operation Date: 08/03/20 09:05 Actual Procedures p Left Total Knee Arthroplasty(Left) - Ruperto Giron MD Hospital Course (1) Status post total left knee replacement: This patient is a 54 year old female admitted on 08/03/20 and underwent total knee arthroplasty. She tolerated the procedure well and there were no complications. Transferred to the PACU post op and later to the orthopedic floor for further care. She was given ancef for antibiotic prophylaxis. She was also given DANNY stockings, SCDs, and aspirin for DVT prophylaxis. Hemoglobin, hematocrit, and vital signs were monitored during her hospital stay and remained stable. Did not require any blood transfusions. There were no complications during her hospital stay. By post op day #2 the patient was tolerating a diabetic diet, pain was reasonably controlled with oral pain medicine, and she was participating in physical therapy. On post op day #2 the patient was discharged home and set up with home health care. She was given printed discharge instructions including prescriptions for extra strength tylenol, aspirin, and oxycodone. Continue physical therapy, weight bearing as tolerated. Continue DANNY stockings. Follow up approximately 2 weeks post op or sooner if there are problems or concerns. Coding Level of Care Code None Diagnoses Status post total left knee replacement Z96.652
== END 2020-08-05 13:54 | disposition home health service (06) ==
LOC: 3E 06:50 → ASU 06:50
DX: M17.12 Unilateral primary osteoarthritis, left knee; Z79.4 Long term (current) use of insulin; K21.9 Gastro-esophageal reflux disease without esophagitis; I10 Essential (primary) hypertension; Z79.890 Hormone replacement therapy; Z79.51 Long term (current) use of inhaled steroids; F32.9 Major depressive disorder, single episode, unspecified; E11.9 Type 2 diabetes mellitus without complications; F41.9 Anxiety disorder, unspecified; G47.30 Sleep apnea, unspecified